=== PATIENT | male | born 1970 | race Caucasian/White ===

== ENCOUNTER 2024-01-23 01:47 | Emergency (ER) | payer MEDICAID, SELFPAY ==
[2024-01-23 01:53] VITALS: BP 175/104; PULSE 76; TEMP 36.8; O2SAT 95; BMI 26.5
--- NOTE | 2024-01-23 02:25 | ED_ITS ---
HPI - Abdominal Pain General Chief Complaint: Abdominal Pain Stated Complaint: LUMP/BUMP Time Seen by Provider: 01/23/24 02:02 Source: patient Mode of arrival: walk-in Limitations: no limitations History of Present Illness HPI narrative: This 53-year-old male presents for evaluation of left inguinal pain and swelling. He believes he has a hernia in this area. In September or October he was doing some heavy lifting and felt a tearing sensation in this area. Since that time he has felt a hernia in his left inguinal area just medial to the inguinal crease. He states that it swells up at times and he can feel gas gurgling and it. He states that sometimes after that when he passes gas the hernia goes down and his pain resolves. He has not been seen by a surgeon or his family physician for this. He states that for the past several days it has gotten worse and he feels that it is swollen and he cannot get it to go down despite passing gas. He denies any nausea or vomiting. He has no chest pain or shortness of breath. He has not been having any urinary symptoms. Related Data Home Medications ?Medication ?Instructions ?Recorded ?Confirmed No Known Home Medications 01/23/24 01/23/24 Allergies Allergy/AdvReac Type Severity Reaction Status Date / Time No Known Drug Allergies Allergy Verified 01/23/24 01:57 Review of Systems ROS Status of ROS 10 or more systems reviewed and unremark able except as noted in history and below Exam Narrative Exam Narrative: Vital signs and Nursing Notes reviewed: Patient is afebrile with a normal pulse, blood pressure is elevated at 175/104, he is not hypoxic with pulse ox of 95% on room air General: Awake, alert, oriented, no acute distress, lying comfortably on the stretcher HEENT: Normocephalic atraumatic, mucous membranes are moist and pink, eyes are clear, normal conjunctiva, vision is grossly intact Neck: Supple, no meningeal signs, no anterior or posterior cervical lymphadenopathy Chest: Lungs are clear to auscultation with good air entry, there is no wheezing rhonchi or rales appreciated no accessory muscle use, patient is speaking in complete sentences-no chest wall tenderness to palpation CVS: Regular rate and rhythm S1-S2, no murmurs rubs or gallops, pulses are brisk and equal bilaterally ABD: Soft, nondistended, mild tenderness in the left lower quadrant. Questionable hernia sac in the left medial inguinal area. There is no pulsatile mass or large hernia appreciated Extremities: Moving all extremities, no lower extremity tenderness or swelling noted, negative Homans' sign, pulses are brisk and equal bilaterally Skin: Normal in appearance without rash,pallor, petechiae or purpura Neuro: No focal deficits Constitutional Vital Signs, click to edit/add: Last Vital Signs Temp 98.2 F 01/23/24 01:53 Pulse 76 01/23/24 01:53 Resp 18 01/23/24 01:53 BP 157/88 H 01/23/24 02:49 Pulse Ox 95 01/23/24 01:53 O2 Del Method Room Air 01/23/24 01:53 Course Vital Signs Vital signs: Vital Signs Temperature 98.2 F 01/23/24 01:53 Pulse Rate 76 01/23/24 01:53 Respiratory Rate 18 01/23/24 01:53 Blood Pressure 175/104 H 01/23/24 01:53 Pulse Oximetry 95 01/23/24 01:53 Oxygen Delivery Method Room Air 01/23/24 01:53 Temperature 98.2 F 01/23/24 01:53 Pulse Rate 76 01/23/24 01:53 Respiratory Rate 18 01/23/24 01:53 Blood Pressure 157/88 H 01/23/24 02:49 Pulse Oximetry 95 01/23/24 01:53 Oxygen Delivery Method Room Air 01/23/24 01:53 MDM - Abdominal Pain MDM Narrative Medical decision making narrative: This 53-year-old male presents for evaluation of a left inguinal hernia that has been present since September or October after he was lifting something heavy and felt the hernia popped out and his left groin area. He is tender in the area medial to the inguinal canal. States that he can feel gas in this area and it will become swollen and after passing gas it goes down. He is not having any nausea or vomiting. I initially was questioning whether or not I could feel a hernia in this area but did feel a small defect. The patient was medicated with IV Dilaudid Zofran and IV fluids and placed in a supine position with his legs under 3 pillows to relax his abdominal muscles. He then got up to use the bathroom and I reevaluated him and could feel a small hernia in this area that I was able to easily reduce while he was standing. Routine labs were ordered and are reviewed. White count is minimally elevated 11.7. The remainder of his labs and lactic acid are normal. CT scan of the abdomen pelvis with oral and IV contrast was ordered and shows a small fat-containing left inguinal hernia without signs of incarceration or bowel obstruction. The results of the CT scan were discussed with the patient and his . I instructed him that if he has recurrence of this hernia he should lie down, relax his abdominal wall muscles and try to reduce it and if he cannot or has symptoms of nausea vomiting or in ability to pass gas or have bowel movements he should return to the emergency department as it may become obstructed. He will be referred to outpatient general surgery for further evaluation and treatment. Medical Records Medical records narrative: [facility] [place] [id number] CT Scan Report Signed Patient: KARLIE ANN MR#: [id number] : 1970 Acct:[id number] Age/Sex: 53 / M ADM Date: 01/23/24 Loc: ER Attending Dr: Ordering Physician: Ashley Tobin Date of Service: 01/23/24 Procedure(s): CT abdomen pelvis w con Accession Number(s): [id number] cc: Physician,Non-Staff M.Anyi~ The [address] [address] Patient Name: KARLIE ANN MRN: [id number] date: 1970 Sex: M Assigned Patient Location: ER Current Patient Location: ER Accession/Order Number: [id number] Exam Date: 01/23/2024 04:45 Report Date: 01/23/2024 05:18 At the request of: ASHLEY TOBIN Procedure: CT abdomen pelvis w con CT OF THE ABDOMEN AND PELVIS WITH CONTRAST: 01/23/2024 4:45 AM EDT CLINICAL HISTORY: Abdominal pain. COMPARISONS: None. TECHNIQUE: Thin section axial CT images were obtained from the lung bases to the pubis symphysis. This CT exam was performed using one or more of the following dose reduction techniques: Automated exposure control, adjustment of the mA and/or kV according to patient size, or use of iterative reconstruction technique. Thin section coronal and sagittal images were reconstructed from the axial data set. All images were reviewed and interpreted. CONTRAST: Intravenous and oral contrast was administered. Type and amount is documented at the local institution. FINDINGS: LUNG BASES: No consolidation or pleural fluid. LIVER: Normal. GALLBLADDER: Normal. BILIARY TREE: No ductal dilatation. PANCREAS: Normal. SPLEEN: Normal. ADRENALS: Normal. KIDNEYS: Normal, without urolithiasis or hydronephrosis. URINARY BLADDER: Grossly unremarkable. PELVIC STRUCTURES: Unremarkable. GASTROINTESTINAL TRACT: Normal GE junction and stomach. Normal appearance and caliber of small and large bowel. Oral contrast seen throughout most of small bowel but as yet to progress to large bowel. No evidence of obstruction, gross mass, or inflammatory change. There is mild scattered diverticulosis. There is no evidence of diverticulitis. APPENDIX: Negative. LYMPH NODES: No pathologically enlarged lymph nodes identified. PERITONEUM: No intraperitoneal free air. No free intraperitoneal fluid. MESENTERY: Unremarkable. RETROPERITONEUM: The retroperitoneum is unremarkable. AORTA: Normal in caliber. BODY WALL: No body wall mass. Small fat-containing left inguinal hernia without inflammation or obvious incarceration. No bowel herniation. No anterior abdominal wall hernia. OSSEOUS STRUCTURES: No destructive osseous lesion or displaced fracture. CT/CT abdomen pelvis w con IMPRESSION: 1. Small incidental fat-containing left inguinal hernia. 2. No acute or significant abdominal or pelvic pathology otherwise. Lab Data Attestation: I reviewed the patient's lab results. Lab results narrative: labs are normal Labs: Lab Results 01/23/24 Range/Units 02:30 WBC 11.7 H (4.0-11.0) 10^3/uL RBC 5.10 (4.70-6.10) 10^6/uL Hgb 14.6 (14.0-18.0) g/dL Hct 42.6 (42.0-54.0) % MCV 83.5 (80.0-94.0) fL MCH 28.6 (25.9-34.0) pg MCHC 34.3 (29.9-35.2) g/dL RDW 12.9 (11.0-15.0) % Plt Count 232 (150-450) 10^3/uL MPV 9.2 L (9.5-13.5) fL Neut % (Auto) 48.4 (43.0-75.0) % Lymph % (Auto) 35.0 (20.5-60.0) % [place] % (Auto) 8.0 (1.7-12.0) % Eos % (Auto) 7.2 H (0.9-7.0) % Baso % (Auto) 1.1 (0.2-2.0) % Neut # (Auto) 5.7 (1.4-6.5) 10^3/uL Lymph # (Auto) 4.1 H (1.2-3.8) 10^3/uL [place] # (Auto) 0.9 H (0.3-0.8) 10^3/uL Eos # (Auto) 0.8 H (0.0-0.7) 10^3/uL Baso # (Auto) 0.1 (0.0-0.1) 10^3/uL Abs Immat Gran (auto) 0.03 (0.00-0.03) 10^3/uL Imm/Tot Granulo (auto) 0.3 (0.0-0.5) % Sodium 140 (136-145) mmol/L Potassium 3.4 L (3.5-5.1) mmol/L Chloride 103 (98-107) mmol/L Carbon Dioxide 27.3 (21.0-32.0) mmol/L Anion Gap 13.1 BUN 17.0 (7.0-18.0) mg/dL Creatinine 0.99 (0.70-1.30) mg/dL Est GFR ( Amer) >60 (>=60) Est GFR (Non-Af Amer) >60 (>=60) BUN/Creatinine Ratio 17.2 Glucose 92 (74-106) mg/dL Lactate 0.9 (0.4-2.0) mmol/L Calcium 8.7 (8.5-10.1) mg/dL Total Bilirubin 0.4 (0.2-1.0) mg/dL AST 20 (15-37) U/L ALT 24 (16-63) U/L Alkaline Phosphatase 122 H (46-116) U/L Total Protein 7.3 (6.4-8.2) g/dL Albumin 3.6 (3.4-5.0) g/dL Globulin 3.7 g/dL Albumin/Globulin Ratio 1.0 Discharge Plan Discharge Stand Alone Forms: Portal Instructions Chief Complaint: Abdominal Pain Clinical Impression: Left inguinal hernia Patient Disposition: Home, Self-Care Time of Disposition Decision: 05:34 Condition: Good Prescriptions / Home Meds: No Action No Known Home Medications Print Language: Bulgarian Instructions: Inguinal Hernia (ED), Inguinal Hernia Repair (DC) Referrals: Derek Coronel DO [Physician] - 1 week Gasper Fitzpatrick MD [Physician] - 1 week Gasper Chong MD [Physician] - 1 week Physician,Non-StaffMD [Primary Care Provider] - 1 week
[2024-01-23 02:38] LABS: Basophils Absolute Auto 0.1 10^3/uL (0.0-0.1); Basophils Percent Auto 1.1 % (0.2-2.0); Eosinophils Absolute Auto 0.8 10^3/uL (0.0-0.7); Eosinophils Percent Auto 7.2 % (0.9-7.0); Hematocrit 42.6 % (42.0-54.0); Hemoglobin 14.6 g/dL (14.0-18.0); Immature Granulocytes Abs Auto 0.03 10^3/uL (0.00-0.03); Immature Granulocytes Pct Auto 0.3 % (0.0-0.5); Lymphocytes Absolute Auto 4.1 10^3/uL (1.2-3.8); Mean Corpuscular HGB Conc 34.3 g/dL (29.9-35.2); Mean Corpuscular Hemoglobin 28.6 pg (25.9-34.0); Mean Corpuscular Volume 83.5 fL (80.0-94.0); Mean Platelet Volume 9.2 fL (9.5-13.5); Monocytes Absolute Auto 0.9 10^3/uL (0.3-0.8); Neutrophils Absolute Auto 5.7 10^3/uL (1.4-6.5); Neutrophils Percent Auto 48.4 % (43.0-75.0); Platelet Count 232 10^3/uL (150-450); Red Cell Distribution Width 12.9 % (11.0-15.0); White Blood Count 11.7 10^3/uL (4.0-11.0)
[2024-01-23] MEDS: 0.9 % SODIUM CHLORIDE 1,000 ML 1000 ML IV (02:38)
[2024-01-23] MEDS: ONDANSETRON PF 4 MG/2 ML VIAL IV (02:38)
[2024-01-23] MEDS: HYDROMORPHONE HCL 1 MG/ML CARTRIDGE IV (02:39)
[2024-01-23 02:49] VITALS: BP 157/88
[2024-01-23 02:56] LABS: Alanine Aminotransferase 24 U/L (16-63); Albumin Level 3.6 g/dL (3.4-5.0); Alkaline Phosphatase 122 U/L (46-116); Anion Gap 13.1; Aspartate Amino Transferase 20 U/L (15-37); BUN Creatinine Ratio 17.2; Bilirubin Total 0.4 mg/dL (0.2-1.0); Calcium 8.7 mg/dL (8.5-10.1); Carbon Dioxide 27.3 mmol/L (21.0-32.0); Chloride 103 mmol/L (98-107); Estimated GFR (African America >60 (>=60); Estimated GFR (Non-African Ame >60 (>=60); Globulin 3.7 g/dL; Glucose 92 mg/dL (74-106); Potassium 3.4 mmol/L (3.5-5.1); Sodium 140 mmol/L (136-145); Total Protein 7.3 g/dL (6.4-8.2)
[2024-01-23 02:59] LABS: Lactate/Lactic Acid 0.9 mmol/L (0.4-2.0)
[2024-01-23 05:57] VITALS: BP 154/72; PULSE 88; O2SAT 97
== END 2024-01-23 05:57 | disposition home or self-care (01) ==
PROVIDERS: Emergency Provider Emergency Medicine
DX: K40.90 Unilateral inguinal hernia, without obstruction or gangrene, not specified as recurrent (principal)
CPT/HCPCS: 36415; 74177; 80053; 83605; 85025; 96374; 96375; 99284; J1170; Q9967

== ENCOUNTER 2024-02-12 08:35 | Outpatient (OUT) | payer MEDICAID, SELFPAY ==
--- NOTE | 2024-02-12 08:40 | ECG_ITS ---
[facility] Test Date: 2024-02-12 Pat Name: KARLIE ANN Department: Room: - Gender: Male [employer]: : 1970 Requested By: Order Number: [id number] Reading MD: MALIK PULIDO Measurements Intervals [place] Rate: 57 P: 43 MD: 153 QRS: -10 QRSD: 97 T: -23 QT: 527 QTc: 516 Interpretive Statements SINUS BRADYCARDIA POSSIBLE LEFT VENTRICULAR HYPERTROPHY [VOLTAGE CRITERIA PLUS LAE OR QRS WIDENING] MINIMAL ST DEPRESSION [0.025+ mV ST DEPRESSION] PROLONGED QT INTERVAL No previous ECG available for comparison Electronically Signed On 02-12-2024 22:49:06 EDT by MALIK PULIDO
--- OUTSIDE RECORDS SUMMARY | 2024-02-12 08:48 | XMS_ITS | CCD ---
Author Organization [facility] CliniSyny Care Team Providers Care Air Cargo Specialist Name Role Phone TRISTA, DR MIRANDA Primary Care Unavailable [facility], DR MIRANDA Attending Unavailable BOGUE, DR KARLIE Osorio Consulting Unavailable TRISTA, DR MIRANDA Admitting Unavailable TRISTA, DR MIRANDA Consulting Unavailable Lauren Hernández Primary Care Physician Unavailab Tara Cedillo Referring Unavailable CLARE, Tara Attending Unavailable Tara SPARKS Admitting Unavailable Alejandra Armando Attending Unavailable Lauren Hernández Referring Unavailable KADIE VOGEL Attending Unavailable Allergies Allergy Classification Reported Allergen(s) Allergy Type Date of Onset Reaction(s) Facility (2 sources) Tape 1 Drug allergy Eruption of skin (disorder) [facility] Comment on above: paper tape (1 source) Adhesive Tape; Translations: [Tape] Propensity to adverse reactions (disorder) [facility] Repository Medications Current Medications Medication Drug Class(es) Dates Sig (Normalized) Sig (Original) Ibuprofen (2 sources) Nonsteroidal Anti-inflammatory Drug Start: 04-12-2022 ibuprofen Oral, q8hr, PRN as needed for pain, Refills(s) 0 Start Date: 04/12/22 Status: Ordered Completed/Discontinued Medications Medication Drug Class(es) Dates Sig (Normalized) Sig (Original) polyethylene glycol 3350 [id number] mg / potassium chloride 1480 mg / sodium bicarbonate 5720 mg / sodium chloride 48448 mg powder for oral solution (2 sources) Osmotic Laxative Start: 04-12-2022 NuLYTELY Knutson oral powder for reconstitution See Instructions, 1 EA, Refill(s) 0, Prior to colonoscopy., [facility], 177.8, cm, 04/12/22 15:06:00 EDT, Height/Length Dosing, 88.3, kg, 04/12/22 15:06:00 EDT, Weight Dosing Start Date: 04/12/22 Status: Ordered Problems Problem Classification Problem Date Documented Da te Episodic/Chronic Other nervous system disorders (1 source) Other chronic pain; Translations: [OTHER CHRONIC PAIN] Onset: 03-11-2022 Chronic Other non-traumatic joint disorders (4 sources) Pain in right knee; Translations: [PAIN IN RIGHT KNEE] Onset: 03-10-2022 Episodic Other non-traumatic joint disorders (1 source) Pain in left knee; Translations: [PAIN IN LEFT KNEE] Onset: 03-11-2022 Episodic Unclassified (2 sources) Patient encounter status 04-12-2022 Results Test Name Value Interpretation Reference Range Facility Progress Note-Physicianon Progress Note-Physician Patient: KARLIE ANN SR. Age: 51 years Sex: Male : 1970 Associated Diagnoses: None Author: Crispin Siegel Jr., DO Preoperative Information Anesthesia history: Patient History: No prior problems.. Re-eval prior to induction: Inital eval reviewed: No significant interval change. Anesthesia results Review of Systems Constitutional: Negative except as documented in history of present illness. Cardiovascular: Negative except as documented in history of present illness. Respiratory: Negative. Health Status Allergies: Allergic Reactions (Selected) Severity Not Documented Tape- Rash., Allergies (1) Active Reaction Tape Rash Current medications: (Selected) Inpatient Medications Ordered Lactated Ringers IV Sophie 1000 mL 1,000 mL: 1,000 mL, IV, 100 mL/hr, Routine, Start date 05/25/22 13:09:00 EDT, 10 hour(s), Total volume (mL): 1,000 Sodium Chloride 0.9% IV Sophie 1000 mL 1,000 mL: 1,000 mL, IV, 20 mL/hr, Routine, Start date 05/25/22 8:06:00 EDT, 50 hour(s), Total volume (mL): 1,000 Prescriptions Prescribed NuLYTELY Knutson oral powder for reconstitution: See Instructions, 1 EA, Refill(s) 0, Prior to colonoscopy., [employer], 177.8, cm, 04/12/22 15:06:00 EDT, Height/Length Dosing, 88.3, kg, 04/12/22 15:06:00 EDT, Weight Dosing Documented Medications Documented ibuprofen: Oral, q8hr, PRN as needed for pain, Refills(s) 0 Histories Past Medical History: No active or resolved past medical history items have been selected or recorded. Family History: Primary malignant neoplasm of lung Father Primary malignant neoplasm of bone Brother Malignant lymphoma Mother Procedure history: Left foot ([id number]). Comments: 04/12/2022 15:02 EDT - Ilana Guo Surgery Social History Social & Psychosocial Habits Tobacco 04/12/2022 Tobacco Use: 10 or more cigarettes (1/ Smokeless tobacco use: Never Type: Cigarettes . Physical Examination Respiratory: Lungs are clear to auscultation. Cardiovascular: Regular rhythm. Plan [place] [employer]esthesiologists (ASA) physical status classification: Class II. Anesthetic Preoperative Plan Anesthesia: General. . Anesthetic plan, risks, benefits, and alternatives discussed with the patient and/or family. Patient verbalized understanding. Normal [facility] Comment on above: Result Comment: Elec tronically Signed By: Crispin Siegel Jr., DO.br\Date and Time Signed: 05/25/22 13:10 EDT Consent for Procedure/Surger yon 04-14-2022 Consent for Procedure/Surgery [id number]:[id number] Normal [facility] Ambulatory Visit Summaryon 0 04-12-2022 Ambulatory Visit Summary KARLIE ANN SR. :1970 Visit Date:04/12/2022 Ambulatory Visit Instructions Your Diagnosis Screen for colon cancer Your Care Team Attending Physician - Alejandra Armando CNP Primary Care Physician - Lauren Hernández CNP Referring Physician - Lauren Hernández CNP This Is Your Medications List polyethylene glycol 3350 with electrolytes (NuLYTELY Knutson oral powder for reconstitution) Contact prescribing physician if questions or concerns ibuprofen Procedures Performed Left foot. Discharge Vitals Temperature (Temporal Artery) 36.2 ?C Heart Rate (Peripheral) 82 Blood Pressure 133/79 Height 177.8 cm Height 177.8 cm Weight 88.3 kg Weight 88.3 kg BMI 27.93 What to do next You Need to Schedule the Following Appointments Follow Up with Alejandra Armando CNP When: Within 1 to 2 weeks Where: Medications What How Much When Instructions New polyethylene glycol 3350 with electrolytes (NuLYTELY Knutson oral powder for reconstitution) See instructions Prior to colonoscopy. Pickup at [facility] Unchanged ibuprofen OTC prn Contact prescribing physician if questions or concerns Pharmacy Information [facility]: [address] [place] [phone] Allergies Tape (Rash) Problems Ongoing - Any problem that you are currently receiving treatment for. Screen for colon cancer Education Materials Colonoscopy, Adult A colonoscopy is an exam to look at the entire large intestine. During the exam, a lubricated, flexible tube that has a camera on the end of it is inserted into the anus and then passed into the rectum, colon, and other parts of the large intestine. You may have a colonoscopy as a part of normal colorectal screening or if you have certain symptoms, such as: ? Lack of red blood cells (anemia). ? Diarrhea that does not go away. ? Abdominal pain. ? Blood in your stool (feces). A colonoscopy can help screen for and diagnose medical problems, including: ? Tumors. ? Polyps. ? Inflammation. ? Areas of bleeding. Tell a health care provider about: ? Any allergies you have. ? All medicines you are taking, including vitamins, herbs, eye drops, creams, and jwjj-zgk-iqldtwe medicines. ? Any problems you or family members have had with anesthetic medicines. ? Any blood disorders you have. ? Any surgeries you have had. ? Any medical conditions you have. ? Any problems you have had passing stool. What are the risks? Generally, this is a safe procedure. However, problems may occur, including: ? Bleeding. ? A tear in the intestine. ? A reaction to medicines given during the exam. ? Infection (rare). What happens before the procedure? Eating and drinking restrictions Follow instructions from your health care provider about eating and drinking, which may include: ? A few days before the procedure ? follow a low-fiber diet. Avoid nuts, seeds, dried fruit, raw fruits, and vegetables. ? 1?3 days before the procedure ? follow a clear liquid diet. Drink only clear liquids, such as clear broth or bouillon, black coffee or tea, clear juice, clear soft drinks or sports drinks, gelatin dessert, and popsicles. Avoid any liquids that contain red or purple dye. ? On the day of the procedure ? do not eat or drink anything starting 2 hours before the procedure, or within the time period that your health care provider recommends. Up to 2 hours before the procedure, you may continue to drink clear liquids, such as water or clear fruit juice. Bowel prep If you were prescribed an oral bowel prep to clean out your colon: ? Take it as told by your health care provider. Starting the day before your procedure, you will need to drink a large amount of medicated liquid. The liquid will cause you to have multiple loose stools until your stool is almost clear or light green. ? If your skin or anus gets irritated from diarrhea, you may use these to relieve the irritation: ? Medicated wipes, such as adult wet wipes with aloe and vitamin E. ? A skin-soothing product like petroleum jelly. ? If you vomit while drinking the bowel prep, take a break for up to 60 minutes and then begin the bowel prep again. If vomiting continues and you cannot take the bowel prep without vomiting, call your health care provider. ? To clean out your colon, you may also be given: ? Laxative medicines. ? Instructions about how to use an enema. General instructions ? Ask your health care provider about: ? Changing or stopping your regular medicines or supplements. This is especially important if you are taking iron supplements, diabetes medicines, or blood thinners. ? Taking medicines such as aspirin and ibuprofen. These medicines can thin your blood. Do not take these medicines before the procedure if your health care provider tells you not to. ? Lucita (more content not included)... Normal [facility] Gastroenterology Office/Clin ic Noteon 04-12-2022 Gastroenterology Office/Clinic Note Chief Complaint Schedule colonoscopy. HPI Staff New patient is here today to have colonoscopy scheduled. Patient was referred by Lauren Charlton CNP. History of Present Illness Patient is a 51-year-old male who presents for referral from his PCP?Lauren Hernández CNP for colonoscopy. Family history of colon cancer: Denies. Family history of colon polyps: Denies. Personal history of colon cancer: Denies. Personal history of colon polyps: Denies. Anticoagulation therapy: Denies. Antiplatelet therapy: Denies. During today's visit, patient reports he is doing well. Denies having any change in bowel habits, denies black/bloody stools. Denies having any GI complaints. Review of Systems PHQ Score Initial Depression Screen Score: 0 ROS - Provider Constitutional: no fever, no chills. Skin: no Jaundice. ENMT: Denies dysphagia and heartburn. Respiratory: no shortness of breath. Cardiovascular: no chest pain. Gastrointestinal: no nausea, no vomiting, no diarrhea, no GI bleeding. Physical Exam Vitals & Measurements T: 36.2 ?C(Temporal Artery) HR: 82(Peripheral) BP: 133/79 HT: 177.8 cm HT: 177.8 cm WT: 88.3 kg WT: 88.3 kg BMI: 27.93 General: Well developed, well nourished, in no acute distress Head: Normocephalic/atraumat ic Lungs: Normal respiratory effort and clear to auscultation Cardio: Regular rate and rhythm, normal S1 and S2, no murmur, no rub Abdomen: Soft, non-distended, non-tender. Normoactive bowel sounds present in all 4 abdominal quadrants, bilaterally. Mental Status: Alert and oriented x3. Normal mood and affect Assessment/Plan 1. Screen for colon cancer (Z12.11: Encounter for screening for malignant neoplasm of colon) Has never had colonoscopy before. Ordered Colonoscopy. Denies anticoagulation therapy. Ordered: Colonoscopy (Hospital Procedure) Orders: polyethylene glycol 3350 with electrolytes, See Instructions, 1 EA, Refill(s) 0, Prior to colonoscopy., [facility], 177.8, cm, 04/12/22 15:06:00 EDT, Height/Length Dosing, 88.3, kg, 04/12/22 15:06:00 EDT, Weight Dosing Follow-up With When Contact Information Alejandra Armando CNP Within 1 to 2 weeks Additional Instructions: Patient Education Colonoscopy, Adult Problem List/Past Medical History Ongoing Screen for colon cancer Historical No qualifying data Procedure/Surgical History Left foot. Medications ibuprofen NuLYTELY Knutson oral powder for reconstitution, See Instructions Allergies Tape (Rash) Social History Tobacco 10 or more cigarettes (1/2 pack or more)/day in last 30 days Tobacco Use:. Never Smokeless Tobacco Use:. Cigarettes, 04/12/2022 Family History Malignant lymphoma: Mother. Primary malignant neoplasm of bone: Brother. Primary malignant neoplasm of lung: Father. Normal [facility] Comment on above: Result Comment: Elec tronically Signed By: Alejandra Armando CNP\.rafael\Date and Time Signed: 04/12/22 15:14 EDT Patient Educationon 04-12-20 Patient Education Radiology Colonoscopy, Adult A colonoscopy is an exam to look at the entire large intestine. During the exam, a lubricated, flexible tube that has a camera on the end of it is inserted into the anus and then passed into the rectum, colon, and other parts of the large intestine. You may have a colonoscopy as a part of normal colorectal screening or if you have certain symptoms, such as: ? Lack of red blood cells (anemia). ? Diarrhea that does not go away. ? Abdominal pain. ? Blood in your stool (feces). A colonoscopy can help screen for and diagnose medical problems, including: ? Tumors. ? Polyps. ? Inflammation. ? Areas of bleeding. Tell a health care provider about: ? Any allergies you have. ? All medicines you are taking, including vitamins, herbs, eye drops, creams, and gana-jfe-hnejofp medicines. ? Any problems you or family members have had with anesthetic medicines. ? Any blood disorders you have. ? Any surgeries you have had. ? Any medical conditions you have. ? Any problems you have had passing stool. What are the risks? Generally, this is a safe procedure. However, problems may occur, including: ? Bleeding. ? A tear in the intestine. ? A reaction to medicines given during the exam. ? Infection (rare). What happens before the procedure? Eating and drinking restrictions Follow instructions from your health care provider about eating and drinking, which may include: ? A few days before the procedure ? follow a low-fiber diet. Avoid nuts, seeds, dried fruit, raw fruits, and vegetables. ? 1?3 days before the procedure ? follow a clear liquid diet. Drink only clear liquids, such as clear broth or bouillon, black coffee or tea, clear juice, clear soft drinks or sports drinks, gelatin dessert, and popsicles. Avoid any liquids that contain red or purple dye. ? On the day of the procedure ? do not eat or drink anything starting 2 hours before the procedure, or within the time period that your health care provider recommends. Up to 2 hours before the procedure, you may continue to drink clear liquids, such as water or clear fruit juice. Bowel prep If you were prescribed an oral bowel prep to clean out your colon: ? Take it as told by your health care provider. Starting the day before your procedure, you will need to drink a large amount of medicated liquid. The liquid will cause you to have multiple loose stools until your stool is almost clear or light green. ? If your skin or anus gets irritated from diarrhea, you may use these to relieve the irritation: ? Medicated wipes, such as adult wet wipes with aloe and vitamin E. ? A skin-soothing product like petroleum jelly. ? If you vomit while drinking the bowel prep, take a break for up to 60 minutes and then begin the bowel prep again. If vomiting continues and you cannot take the bowel prep without vomiting, call your health care provider. ? To clean out your colon, you may also be given: ? Laxative medicines. ? Instructions about how to use an enema. General instructions ? Ask your health care provider about: ? Changing or stopping your regular medicines or supplements. This is especially important if you are taking iron supplements, diabetes medicines, or blood thinners. ? Taking medicines such as aspirin and ibuprofen. These medicines can thin your blood. Do not take these medicines before the procedure if your health care provider tells you not to. ? Plan to have someone take you home from the hospital or clinic. What happens during the procedure? ? An IV may be inserted into one of your veins. ? You will be given medicine to help you relax (sedative). ? To reduce your risk of infection: ? Your health care team will wash or sanitize their hands. ? Your anal area will be washed with soap. ? You will be asked to lie on your side with your knees bent. ? Your health care provider will lubricate a long, thin, flexible tube. The tube will have a camera and a light on the end. ? The tube will be inserted into your anus. ? The tube will be gently eased through your rectum and colon. ? Air will be delivered into your colon to keep it open. You may feel some pressure or cramping. ? The camera will be used to take images during the procedure. ? A small tissue sample may be removed to be examined under a microscope (biopsy). ? If small polyps are found, your health care provider may remove them and have them checked for cancer cells. ? When the exam is done, the tube will be removed. The procedure may vary among health care providers and hospitals. What happens after the procedure? ? Your blood pressure, heart rate, breathing rate, and blood oxygen level will be monitored until the medicines you were given have worn off. ? Do not drive for 24 hours after the exam. ? You may have a small amount of blood in your stool. ? You may pass gas and have mild abdominal cramping or bloating due to the air t (more content not included)... Normal [facility] Physician Referralon 022 Physician Referral [id number]:[id number] Normal [facility] XR KNEE LESLY 3 Von 03-10-2022 XR KNEE LESLY 3 V EXAMINATION: XR KNEE LESLY 3 V HISTORY: Pain of right knee joint COMPARISON: No relevant comparison available. FINDINGS: RIGHT FINDINGS: BONES: Normal. No significant arthropathy or acute abnormality. SOFT TISSUES: Negative. No visible soft tissue swelling. OTHER: Negative. LEFT FINDINGS: BONES: Corticated bone fragment projected over the medial tibial spine, incidental fabella versus remote injury SOFT TISSUES: Negative. No visible soft tissue swelling. OTHER: Negative. IMPRESSION: RIGHT CONCLUSION: No acute abnormality LEFT CONCLUSION: No acute abnormality Electronically authenticated by: KARLIE PEREIRA Date: 2022-03-10 18:21 Normal [facility] Encounters Encounter Date Encounter Type Care Provider Facility Start: 01-31-2024 End: 01-31-2024 ambulatory KADIE VOGEL Not Available Start: 05-18-2022 End: 08-17-2022 ambulatory Pachecoadalid RUTLEDGE [place] Start: 04-12-2022 End: 04-13-2022 ambulatory Alejandra Armando Facility:[facility] Start: 04-12-2022 End: 08-16-2022 Recurring Pachecoadalid RUTLEDGE [facility] Start: 04-12-2022 End: 05-26-2022 Pre-admission assessment Pacheco [facility] Start: 07-18-2022 ambulatory [facility] Facility:[facility] Start: 03-10-2022 End: 03-11-[address] MIRANDA [facility] Facility:[facility]1 Procedures Date Procedure Procedure Detail Performing Clinician Structure of left fo ot (body structure) Tara SPARKS Comment on above: Surgery Payers Date Payer Category Payer Medicaid [id number] 2022 Unknown [id number] 1970 Unknown [id number] 1970 Unknown [id number] 1970 Unknown [id number] 1970 Unknown [id number] Social History Date Type Detail Facility Start: 04-12-2022 Tobacco smoking status Heavy t obacco smoker (finding) [facility] Tobacco smoking status Never [facility] Sex Assigned At Male [facility] Evaluation + Plan note Note Date & Type Note Facility Evaluation + Plan note No data available for this section [facility] Hospital Discharge instructions Note Date & Type Note Facility Hospital Discharge instructions No data available for this section [facility] Progress note Note Date & Type Note Facility Progress note No data available for this section [facility] Summary Purpose Family History No Family History Records FoundNo Family History Records FoundNo Family History Records Found Advance Directives No Advanced Directives Records FoundNo Advanced Directives Records FoundNo Advanced Directives Records Found Additional Source Comments (unrecognized sect ion and content) No Status Records FoundNo Status Records FoundNo Status Records Found INFORMATION SOURCE (unrecogn ized section and content) DATE CREATED AUTHOR 04/20/2022 [facility] DATE CREATED AUTHOR AUTHOR'S ORGANIZ ATION 08/20/2022 [facility] DATE CREATED AUTHOR AUTHOR'S ORGANIZ ATION 02/01/2024 [facility] EPIC Care Team (unrecognized sect ion and content) Personnel Name: Lauren Hernández CNP Address: [address] [place], [place] [id number] [place] [address] Personnel Name: Lauren Hernández CNP Address: Address: [address] [place] [address] FOR RECORDS PERTAINING TO PATIENTS WHO ARE OR HAVE BEEN ENROLLED IN A CHEMICAL DEPENDENCY/SUBSTANCEABUSE PROGRAM, SOME INFORMATION MAY BE OMITTED. This clinical summary was aggregated from multiple sources. Caution should be exercised in using it in the provision of clinical care. This summary normalizes information from multiple sources, and as a consequence, information in this document may materially change the coding, format and clinical context of patient data. In addition, data may be omitted in some cases. CLINICAL DECISIONS SHOULD BE BASED ON THE PRIMARY CLINICAL RECORDS. [facility]. provides no warranty or guarantee of the accuracy or completeness of information in this document.
== END 2024-02-12 08:36 | disposition home or self-care (01) ==
LOC: PST 08:36
PROVIDERS: Visit Provider Surgery
DX: Z01.810 Encounter for preprocedural cardiovascular examination (principal); K40.90 Unilateral inguinal hernia, without obstruction or gangrene, not specified as recurrent
CPT/HCPCS: 93005

== ENCOUNTER 2024-04-08 05:21 | Emergency (ER) | payer MEDICAID, SELFPAY ==
[2024-04-08 05:23] VITALS: BP 168/106; PULSE 88; TEMP 36.4; O2SAT 100; BMI 28.1
--- OUTSIDE RECORDS SUMMARY | 2024-04-08 05:25 | XMS_ITS | CCD ---
Author Organization [facility] Care Team Providers Care Safety Fire Boss Name Role Phone TRISTA, DR MIRANDA Primary Care Unavailable [facility], DR MIRANDA Attending Unavailable [place], DR KARLIE Osorio Consulting Unavailable TRISTA, DR MIRANDA Admitting Unavailable TRISTA, DR MIRANDA Consulting Unavailable Lauren Coto Primary Care Physician Unavail KADIE Lundberg Attending Unavailable LAUREN COTO Primary Care Physician [phone] Allergies Allergy Classification Reported Allergen(s) Allergy Type Date of Onset Reaction(s) Facility (3 sources) Tape 1 Drug allergy Eruption of skin (disorder) [facility] Comment on above: paper tape Medications Current Medications Medication Drug Class(es) Dates Sig (Normalized) Sig (Original) Ibuprofen (3 sources) Nonsteroidal Anti-inflammatory Drug Start: 04-12-2022 ibuprofen Oral, q8hr, PRN as needed for pain, Refills(s) 0 Start Date: 04/12/22 Status: Ordered Completed/Discontinued Medications Medication Drug Class(es) Dates Sig (Normalized) Sig (Original) polyethylene glycol 3350 464796 mg / potassium chloride 1480 mg / sodium bicarbonate 5720 mg / sodium chloride 78405 mg powder for oral solution (3 sources) Osmotic Laxative Start: 04-12-2022 NuLYTELY Knutson oral powder for reconstitution See Instructions, 1 EA, Refill(s) 0, Prior to colonoscopy., [employer] [address]72, 177.8, cm, 04/12/22 15:06:00 EDT, [...] IN LEFT KNEE] Onset: 03-11-2022 Episodic Unclassified (3 sources) Patient encounter status 04-12-2022 Results Test Name Value Interpretation Reference Range Facil ity Referrals Officeon Referrals Office [id number] .00TIFF Normal [facility] Referrals Office [id number] .00TIFF Normal [facility] XR KNEE LESLY 3 Von 03-10-2022 XR [...] by: KARLIE PEREIRA Date: 2022-03-10 18:21 Normal [facility] Encounters Encounter Date Encounter Type Care Provider Facility Start: 02-12-2024 End: 02-13-2024 Pre-admission assessment [facility] Start: 01-31-2024 End: 01-31-2024 ambulatory KADIE VOGEL Not Available Start: 04-12-2022 End: 08-16-2022 Recurring Tara SPARKS [facility] Start: 04-12-2022 End: 05-26-2022 Pre-admission assessment Tara SPARKS [facility] Start: 03-10-2022 End: 03-11-[address] MIRANDA [facility] Facility:H1 Procedures Date Procedure Procedure Detail Performing Clinician Structure of left fo ot (body structure) Tara SPARKS Comment on above: Surgery Payers Date Payer Category Payer Medicaid [id number] 1970 Unknown [id number] 1970 Unknown [id number] Unknown [id number] Social History Date Type Detail Facility Start: 04-12-2022 Tobacco smoking status Heavy t obacco smoker (finding) [facility] Tobacco smoking status Never [facility] Sex Assigned At Male [facility] Evaluation + Plan note Note Date & Type Note Facility Evaluation + Plan note No data available for this section [facility] Hospital Discharge instructions Note Date & Type Note Facility Hospital Discharge instructions No data available for this section [facility] Progress note Note Date & Type Note Facility Progress note No data available for this section [facility] Summary Purpose Family History No Family History Records FoundNo Family History Records FoundNo Family History Records Found No data available for this section Advance Directives No Advanced Directives Records FoundNo Advanced Directives Records FoundNo Advanced Directives Records Found Additional Source Comments (unrecognized sect ion and content) No Status Records FoundNo Status Records FoundNo Status Records Found INFORMATION SOURCE (unrecogn ized section and content) DATE CREATED AUTHOR 04/20/2022 [facility] DATE CREATED AUTHOR AUTHOR'S ORGANIZ ATION 02/01/2024 [facility] EPIC DATE CREATED AUTHOR AUTHOR'S ORGANIZ ATION 02/13/2024 [facility] Care Team (unrecognized sect ion and content) Personnel Name: Lauren Coto CNP Address: [address] [place] [address] Personnel Name: Lauren Coto CNP Address: Address: [address] [place] [address] Personnel Name: LAUREN COTO CNP Address: Address: [address] [place] [address] FOR RECORDS PERTAINING TO PATIENTS WHO ARE [...] BE BASED ON THE PRIMARY CLINICAL RECORDS. [facility] provides no warranty or guarantee of the accuracy or completeness of information in this document.
--- NOTE | 2024-04-08 05:42 | ED_ITS ---
HPI - Male Genitourinary General Chief complaint: Urogenital-Male Stated complaint: hernia l groin Time Seen by Provider: 04/08/24 05:36 Source: patient Mode of arrival: walk-in History of Present Illness HPI Narrative: patient presents with left inguinal hernia that is incarcerated. Normally he is able to reduce it but has been unsuccessful this time. No vomiting or fever. also has a rash on his extremities(worse right lower ext) which he believes is poison [place] He didn't come in for the rash Related Data Home Medications ?Medication ?Instructions ?Recorded ?Confirmed No Known Home Medications 01/23/24 01/23/24 Allergies Allergy/AdvReac Type Severity Reaction Status Date / Time No Known Drug Allergies Allergy Verified 01/23/24 01:57 Review of Systems ROS Status of ROS 10 or more systems reviewed and unremark able except as noted in history and below [facility] Medical History (Updated 04/08/24 @ 06:41 by Derek Barrios MD) Hypertension ?I10 - Essential (primary) hypertension (ICD-10) Osteomyelitis ?M86.9 - Osteomyelitis, unspecified (ICD-10) Foot fracture, left ?S92.902A - Unspecified fracture of left foot, initial encounter for closed fracture (ICD-10) Inguinal hernia ?K40.90 - Unilateral inguinal hernia, without obstruction or gangrene, not specified as recurrent (ICD-10) Surgical History (Updated 02/12/24 @ 09:36 by Yasmine Moe, RAUL) History of surgery on lower extremity ?Z98.890 - Other specified postprocedural states (ICD-10) H/O foot surgery ?Z98.890 - Other specified postprocedural states (ICD-10) Family History (Updated 02/12/24 @ 08:55 by Yasmine Moe, RN) Other Family history of COPD (chronic obstructive pulmonary disease) Family history of cancer Family history of diabetes mellitus Family history of stroke Heart disease Social History (Updated 02/12/24 @ 08:54 by Yasmine Moe, RN) Within the past year, how often did you have a drink containing alcohol: 2-4 times a month Smoking status: Current every day smoker Nicotine containing products detail: pack per day Non-prescribed substance use details: used to use cannabis years agol 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 Highest level of school completed/degree received: 11th grade Exam Constitutional Vital Signs, click to edit/add: Last Vital Signs Temp 97.6 F 04/08/24 05:23 Pulse 88 04/08/24 05:23 Resp 16 04/08/24 05:23 BP 168/106 H 04/08/24 05:23 Pulse Ox 100 04/08/24 05:23 O2 Del Method Room Air 04/08/24 05:23 Common normals: no apparent distress, average body habitus, oriented x3, no limitations, healthy appearing, alert and well nourished HENAZ Common normals: normocephalic and head/scalp atraumatic Eye Common normals: PERRL, EOMs intact bilaterally and conjunctivae normal Respiratory Common normals: normal respiratory effort, no retractions, no use of accessory muscles and clear to auscultation bilaterally Cardio Common normals: regular rate, regular rhythm, S1 normal heart sound and S2 normal heart sound GI Common normals: Normal to inspection, nondistended, normoactive bowel sounds present, soft to palpation and non-tender Other: left inguinal hernia. tender. firm Extremity Other: rash RLE LLE and left elbow. dense rash RLE with weeping. Swelling RLE Neuro Common normals: oriented x3, CN's II-XII intact bilaterally, moves all extremities, no focal motor deficits and no sensory deficits noted Psych Appearance: grossly normal Course Vital Signs Vital signs: Vital Signs Temperature 97.6 F 04/08/24 05:23 Pulse Rate 88 04/08/24 05:23 Respiratory Rate 16 04/08/24 05:23 Blood Pressure 168/106 H 04/08/24 05:23 Pulse Oximetry 100 04/08/24 05:23 Oxygen Delivery Method Room Air 04/08/24 05:23 Temperature 97.6 F 04/08/24 05:23 Pulse Rate 88 04/08/24 05:23 Respiratory Rate 16 04/08/24 05:23 Blood Pressure 168/106 H 04/08/24 05:23 Pulse Oximetry 100 04/08/24 05:23 Oxygen Delivery Method Room Air 04/08/24 05:23 MDM - Male Genitourinary MDM Narrative Medical decision making narrative: patient presents with incarcerated left inguinal hernia that he is not able to reduce. Able to reduce in the past. also has contact dermatitis of his extremities. Worse RLE but RLE also swollen. no fever. Patient medicated with Dilaudid to help with reduction of his hernia. given dose of solumedrol IV for his rash and venous Doppler ordered care transferred to Dr Grant at change of shift Discharge Plan Discharge Chief Complaint: Urogenital-Male Clinical Impression: Left inguinal hernia, Contact dermatitis, Swelling of right lower extremity Patient Disposition: Still a Patient Prescriptions / Home Meds: No Action No Known Home Medications Print Language: Hungarian Referrals: Physician,Non-Staff, MD [Primary Care Provider] - 1 week
[2024-04-08] MEDS: HYDROMORPHONE HCL 0.5 MG/0.5 ML SYRINGE IV (05:54)
--- NOTE | 2024-04-08 06:17 | US_ITS ---
[facility] [place] [id number] Patient Name: KARLIE ANN MRN: [id number] date: 1970 Sex: M Assigned Patient Location: ED.MAIN Current Patient Location: ER Accession/Order Number: [id number] Exam Date: 04/08/2024 07:02 Report Date: 04/08/2024 07:40 At the request of: JAS HAHN Procedure: US venous doppler LE RT CLINICAL DATA: Leg swelling PROCEDURE: Right lower extremity venous duplex ultrasound. TECHNIQUE: Mercado-scale, color flow, and waveform spectral analysis was performed of the right lower extremity. FINDINGS: The right common femoral, profunda femoral, femoral, and popliteal veins were compressible. The saphenous vein was compressible. No venous thrombosis was seen. The veins fill with color Doppler. Augmentation was normal. US/US venous doppler LE RT IMPRESSION: 1. No acute lower extremity deep venous thrombosis. 2. No superficial venous thrombosis. Electronically authenticated by: Nery LENZ Date: 04/08/2024 07:40
[2024-04-08] MEDS: HYDROMORPHONE HCL 1 MG/ML CARTRIDGE IV (06:34)
[2024-04-08] MEDS: METHYLPREDNISOLONE SOD SUCC PF 125 MG/2 ML VIAL IVP (06:34)
--- NOTE | 2024-04-08 07:50 | ED_ITS ---
HPI HPI - General Adult General Chief complaint: Urogenital-Male Stated complaint: hernia l groin Time Seen by Provider: 04/08/24 05:36 Source: patient Mode of arrival: walk-in History of Present Illness HPI narrative: 53-year-old male presents to the emergency department and was initially seen by Dr. Barrios and signed out to me after discussing the case with him thoroughly. Please see his full history and physical exam. Related Data Previous Rx's ?Medication ?Instructions ?Recorded prednisone 10 mg tablet See Rx Instructions .Route 04/08/24 .COMPLEX #30 tabs Allergies Allergy/AdvReac Type Severity Reaction Status Date / Time No Known Drug Allergies Allergy Verified 01/23/24 01:57 Opioid HPI Opioid Management Most Recent Opioid Data: Last Pain Scale 7 04/08/24 06:34 Last MAR [facility]24 [facility] History (Updated 04/08/24 @ 06:41 by Derek Barrios MD) Hypertension ?I10 - Essential (primary) hypertension (ICD-10) Osteomyelitis ?M86.9 - Osteomyelitis, unspecified (ICD-10) Foot fracture, left ?S92.902A - Unspecified fracture of left foot, initial encounter for closed fracture (ICD-10) Inguinal hernia ?K40.90 - Unilateral inguinal hernia, without obstruction or gangrene, not specified as recurrent (ICD-10) Surgical History (Updated 02/12/24 @ 09:36 by Yasmine Moe, RN) History of surgery on lower extremity ?Z98.890 - Other specified postprocedural states (ICD-10) H/O foot surgery ?Z98.890 - Other specified postprocedural states (ICD-10) Family History (Updated 02/12/24 @ 08:55 by Yasmine Moe, RN) Other Family history of COPD (chronic obstructive pulmonary disease) Family history of cancer Family history of diabetes mellitus Family history of stroke Heart disease Social History (Updated 02/12/24 @ 08:54 by Yasmine Moe, RN) Within the past year, how often did you have a drink containing alcohol: 2-4 times a month Smoking status: Current every day smoker Nicotine containing products detail: pack per day Non-prescribed substance use details: used to use cannabis years agol 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 Highest level of school completed/degree received: 11th grade Exam Constitutional Vital Signs, click to edit/add: Last Vital Signs Temp 97.6 F 04/08/24 05:23 Pulse 88 04/08/24 05:23 Resp 16 04/08/24 05:23 BP 168/106 H 04/08/24 05:23 Pulse Ox 100 04/08/24 05:23 O2 Del Method Room Air 04/08/24 05:23 Course Vital Signs Vital signs: Vital Signs Temperature 97.6 F 04/08/24 05:23 Pulse Rate 88 04/08/24 05:23 Respiratory Rate 16 04/08/24 05:23 Blood Pressure 168/106 H 04/08/24 05:23 Pulse Oximetry 100 04/08/24 05:23 Oxygen Delivery Method Room Air 04/08/24 05:23 Temperature 97.6 F 04/08/24 05:23 Pulse Rate 88 04/08/24 05:23 Respiratory Rate 16 04/08/24 05:23 Blood Pressure 168/106 H 04/08/24 05:23 Pulse Oximetry 100 04/08/24 05:23 Oxygen Delivery Method Room Air 04/08/24 05:23 Medical Decision Making MDM Narrative Medical decision making narrative: Doppler is negative. My clinical impression is that he has a contact dermatitis and he is prescribed prednisone. The inguinal hernia was reduced by Dr. Barrios and the patient will follow-up with his surgeon, Dr. Coronel. Treatment diagnosis and follow-up were discussed with the patient. Differential Diagnosis Differential Diagnosis: Contact dermatitis, poison [place], inguinal hernia Imaging Data Venous Doppler: Radiologist's impression: ITS Impressions Venous Doppler Study 04/08/24 06:17 IMPRESSION: 1. No acute lower extremity deep venous thrombosis. 2. No superficial venous thrombosis. Electronically authenticated by: Nery LENZ Date: 04/08/2024 07:40 Discharge Plan Discharge Stand Alone Forms: Portal Instructions Chief Complaint: Urogenital-Male Clinical Impression: Left inguinal hernia, Contact dermatitis, Swelling of right lower extremity Patient Disposition: Home, Self-Care Time of Disposition Decision: 07:49 Condition: Good Mode of Transportation: Private Vehicle Prescriptions / Home Meds: New prednisone 10 mg tablet See Rx Instructions .ROUTE .COMPLEX Qty: 30 0RF Rx Instructions: 4 by mouth daily for three days then 3 by mouth daily for three days then 2 by mouth daily for three days then 1 by mouth daily for three days Print Language: Vietnamese Instructions: Contact Dermatitis (ED), Inguinal Hernia (ED) Additional Instructions: Follow-up with Dr. Coronel regarding your hernia. Referrals: Physician,Non-Staff, MD [Primary Care Provider] - 1 week
[2024-04-08 07:55] VITALS: PULSE 68; O2SAT 97
== END 2024-04-08 08:02 | disposition home or self-care (01) ==
PROVIDERS: Emergency Provider Emergency Medicine
DX: M79.89 Other specified soft tissue disorders (principal); K40.30 Unilateral inguinal hernia, with obstruction, without gangrene, not specified as recurrent; L25.9 Unspecified contact dermatitis, unspecified cause; F17.200 Nicotine dependence, unspecified, uncomplicated
CPT/HCPCS: 93971; 96374; 96375; 96376; 99284; J1170; J2919

== ENCOUNTER 2024-05-07 08:20 | Outpatient (OUT) | payer MEDICAID, SELFPAY ==
--- NOTE | 2024-05-07 08:21 | CA_ITS ---
Patient Name: KARLIE ANN MR#: [id number] : 1970 Exam Date: 05/07/2024 Ordering Doctor: DR. BENITO VALENCIA M.D. ECHOCARDIOGRAM REPORT PROCEDURE: CA ECHO DOPPLER COMPLETE INDICATIONS: Abnormal EKG, Benign HTN w/o heart failure COMPARISON: None. DESCRIPTION: COMPLETE ECHOCARDIOGRAM Real-time transthoracic echocardiography with 2D, M-mode, spectral and color flow Doppler performed. QUALITY: Technical quality was good. LEFT VENTRICLE: Mild dilatation. Mild concentric left ventricular hypertrophy. LV EF: Global left ventricular systolic function is moderately reduced; visually estimated ejection fraction is 35 to 40%. Diffuse hypokinesis DIASTOLIC: Grade 2 diastolic dysfunction. ATRIAL SEPTUM: Inadequately seen. LEFT ATRIUM: Mild dilatation. RIGHT ATRIUM: Mild dilatation. RIGHT VENTRICLE: Normal chamber size. Normal right ventricular systolic function. TRICUSPID VALVE: Normal mobility and thickness. No stenosis with trivial regurgitation. No evidence of pulmonary hypertension. RVSP 19mmHg MITRAL VALVE: Normal mobility and thickness. No evidence of mitral valve stenosis. There is no mitral annular calcification. Trivial mitral regurgitation. AORTIC VALVE: Bicuspid appearance. Nodular calcification is seen. No evidence of aortic valve stenosis. Mild aortic regurgitation. AORTIC ROOT: Mildly dilated. PULMONIC VALVE: Normal thickness and mobility. No stenosis. Trivial regurgitation. PERICARDIUM: No evidence of pericardial effusion. IVC: Collapses with inspirations. Normal size. CONCLUSION: 1. Global left ventricular systolic function is moderately reduced; visually estimated ejection fraction of this 35 to 40% 2. Normal right ventricular size and systolic function 3. Grade 2 diastolic dysfunction 4. Biatrial enlargement 5. The aortic valve appears bicuspid; mild aortic valve regurgitation Adult Echocardiography Procedure Report Left Ventricle LVEDD (3.7 - 5.6 cm): 6.07 cm LVESD (2.2 - 4.0 cm): 5.03 cm LVIVS thickness (0.6 - 1.2 cm): 1.07 cm LVPW thickness (0.5 - 1.0 cm): 1.10 cm e': 0.09 m/s E - e': 8.66 LVOT Max Gradient: 2.82 mm[Hg] LVOT Area (cm2): 0.84 m/s Peak Velocity (LVOT): 0.84 m/s Mean Velocity (LVOT): 0.55 m/s LVOT Diameter 2.78 cm Left Atrium LA Volume Index (2D A2C): 37.78 ml/m2 Left Atrium Systolic Dimension: 3.71 cm Mitral Valve MV E to A Ratio: 0.92 Mitral Valve A-Wave Peak Velocity: 0.83 m/s Mitral Valve E-Wave Peak Velocity: 0.76 m/s Right Ventricle RV Internal Diastolic Dimension: 3.18 cm Aorta AO Root Diam: 3.92 cm Ascending Ao Diam: 2.82 cm Aortic Valve AoV Area (Peak Geovany): 2.67 cm2, 2.67 cm2 AoV Area (VTI): 2.80 cm2, 2.80 cm2 Deceleration [place]: 1.19 m/s2 Pressure Half-Time: 951.85 ms Peak Velocity(Antegrade Flow): 1.90 m/s Peak Gradient(Antegrade Flow): 14.51 mm[Hg] Mean Velocity(Antegrade Flow): 1.31 m/s Mean Gradient(Antegrade Flow): 7.96 mm[Hg] Velocity Time Integral: 43.05 cm Tricuspid Valve Peak Velocity (Regurgitant Flow): 1.92 m/s, 2.00 m/s, 1.78 m/s Pulmonic Valve Mean Gradient: 1.63 mm[Hg], 1.95 mm[Hg] Mean Velocity: 0.58 m/s, 0.64 m/s Peak Velocity: 0.97 m/s Peak Gradient: 3.51 mm[Hg], 3.96 mm[Hg] Right Atrium Right Atrium Systolic Pressure: 55.73 ml, 55.73 ml Dictated by: Julianna Do M.D. on 05/07/2024 at 13:19 Approved by: Julianna Do M.D. on 05/07/2024 at 13:28
== END 2024-05-07 08:21 | disposition home or self-care (01) ==
LOC: CARD 08:21
PROVIDERS: Visit Provider Internal Medicine Cardiovascular Disease
DX: Z01.810 Encounter for preprocedural cardiovascular examination (principal); I11.9 Hypertensive heart disease without heart failure
CPT/HCPCS: 93306; 93356

== ENCOUNTER 2024-05-21 13:44 | Outpatient (OUT) | payer MEDICAID, SELFPAY ==
--- OUTSIDE RECORDS SUMMARY | 2024-05-21 13:58 | XMS_ITS | CCD ---
Author Organization [facility] Inform ion Partnership [facility] Care Team Providers Care Coffee Grinder Name Role Phone TRISTA, DR MIRANDA Primary Care Unavailable TRISTA, DR MIRANDA Attending Unavailable WEST, DR KARLIE Osorio Consulting Unavailable TRISTA, DR MIRANDA Admitting Unavailable TRISTA, DR MIRANDA Consulting Unavailable Monique Coto Primary Care Physician Unavailab KADIE Lundberg Attending Unavailable MONIQUE COTO Primary Care Physician BENITO LYMAN Attending Unavailable Allergies Allergy Classification Reported Allergen(s) Allergy Type Date of Onset Reaction(s) Facility (3 sources) Tape 1 Drug allergy Eruption of skin (disorder) [facility] Comment on above: paper tape Medications Current Medications Medication Drug Class(es) Dates Sig (Normalized) Sig (Original) Ibuprofen (3 sources) Nonsteroidal Anti-inflammatory Drug Start: 04-12-2022 ibuprofen Oral, q8hr, PRN as needed for pain, Refills(s) 0 Start Date: 04/12/22 Status: Ordered Completed/Discontinued Medications Medication Drug Class(es) Dates Sig (Normalized) Sig (Original) polyethylene glycol 3350 309520 mg / potassium chloride 1480 mg / sodium bicarbonate 5720 mg / sodium chloride 19556 mg powder for oral solution (3 sources) Osmotic Laxative Start: 04-12-2022 NuLYTELY Knutson oral powder for reconstitution See Instructions, 1 EA, Refill(s) 0, Prior to colonoscopy., [employer] #72, 177.8, cm, 04/12/22 15:06:00 EDT, Height/Length Dosing, 88.3, kg, 04/12/22 15:06:00 EDT, Weight Dosing Start Date: 04/12/22 Status: Ordered Problems Problem Classification Problem Date Documented Date Episodic/Chronic Hypertension with complications and secondary hypertension (2 sources) Hypertensive heart disease without heart failure; Translations: [Hypertensive heart disease without heart failure] Onset: 04-15-2024 Chronic Other nervous system disorders (1 source) Other chronic pain; Translations: [OTHER CHRONIC PAIN] Onset: 03-11-2022 Chronic Other non-traumatic joint disorders (4 sources) Pain in right knee; Translations: [PAIN IN RIGHT KNEE] Onset: 03-10-2022 Episodic Other non-traumatic joint disorders (1 source) Pain in left knee; Translations: [PAIN IN LEFT KNEE] Onset: 03-11-2022 Episodic Other screening for suspected conditions (not mental disorders or infectious disease) (2 sources) Abnormal electrocardiogram [ECG] [EKG]; Translations: [Abnormal electrocardiogram (ECG) (EKG)] Onset: 04-15-2024 Episodic Unclassified (3 sources) Patient encounter status 04-12-2022 Results Test Name Value Interpretation Reference Range Facil ity 36on 05-13-[address] Lyman regarding patient's echo from 05/08/2024. EF is reduced. She ordered seamus cath and carvedilol 6.25mg bid. I spoke with patient and made him aware. Annette call surgeon's office and made them aware patient would not be cleared for hernia surgery tomorrow. Patient agreed to heart cath. Orders entered. [facility] 36 You ordered echo on this patient for pre-op. He had it last week and the result is scanned into intermediate project manager. Can you please review and let me know once you've cleared him? Thanks. [facility] Office Visiton 04-15-2024 Follow-up visit [id number] Karlie Ann 1970 M Date Provider Department Center 04/15/2024 [id number] LYMAN [facility] Family History Problem Relation Age of Onset Other Mother No Known Problems Father Family Status - Relation Status Age at Mother Father Level of Service:92422 [place] OFFICE/OUTPATIENT NEW MODERATE MDM 45 MINUTES Reason for Visit and Comments: New Patient [632] - New patient , here for hernia surgery clearance. Scheduled 04/23. No cardio symptoms. Pt has hypertenion. [facility] Referrals Officeon 4 Referrals Office [id number] #1.00TIFF Normal [facility] Referrals Office [id number] #1.00TIFF Normal [facility] XR KNEE LESLY 3 Von 03-10-2022 [...] by: KARLIE PEREIRA Date: 2022-03-10 18:21 Normal [facility] Encounters Encounter Date Encounter Type Care Provider Facility Start: 04-15-2024 End: 04-15-2024 ambulatory [facility] Start: 02-12-2024 End: 02-13-2024 Pre-admission assessment [facility] Park [facility] Start: 01-31-2024 End: 01-31-2024 ambulatory KADIE VOGEL Not Available Start: 04-12-2022 End: 08-16-2022 Recurring Tara SPARKS [facility] Start: 04-12-2022 End: 05-26-2022 Pre-admission assessment Tara SPARKS [facility] Start: 03-10-2022 End: 03-11-[address] DOCTOR WESTON Facility:H1 Procedures Date Procedure Procedure Detail Performing Clinician Structure of left fo ot (body structure) Tara SPARKS Comment on above: Surgery Payers Date Payer Category Payer Medicaid [id number] 1970 Unknown [id number] [id number] 1970 Unknown [id number] [id number] Unknown [id number] Social History Date Type Detail Facility Start: 04-12-2022 Tobacco smoking status Heavy t obacco smoker (finding) [facility] Tobacco smoking status Never Bonie [facility] Sex Assigned At Male [facility] Progress note 04-15-2024 Note Date & Type Note Facility 04-15-2024 Note [facility] Note Reason for cardiology consult: Cardiac clearance for inguinal hernia repair Chief Complaint: No cardiac complaint HPI: Karlie Ann is a 53 y.o. male without prior cardiac history. He has history of hypertension. He denies history of hyperlipidemia or diabetes mellitus. He is a smoker Patient states that he has hypertension and blood pressure usually in the range of 145 systolic, he used to be on medications however he quit about 8 to 9 months ago due to side effects. He does not recall the name of his medication. Clinically has been doing well. Denies any chest pain or shortness of breath at rest or with exertion. Denies orthopnea or paroxysmal nocturnal dyspnea. He denies dizziness, syncope or near syncope. He denies legs edema or legs discomfort on exertion. He is a longtime smoker, he used to smoke 2-2 and half pack per day since he was 14-year-old however he cut down gradually to 1 pack/day. He drinks alcohol only on the weekend about 12 packs of beers. He denies any illicit drugs. Regarding family history his mother had history of coronary artery disease at age 71 or 72. Cardiology ROS: GENERAL: Denies fever, chills, night sweats, weight loss. HEENT: Denies changes in vision, photophobia, changes in hearing, epistaxis, oral bleeding. CARDIOVASCULAR: Denies chest pain, exertional dyspnea, orthopnea/PND, lower extremity edema, palpitations, lightheadedness/dizziness. RESPIRATORY: Denies SOB, coughing, wheezing GI: Denies abdominal pain, nausea/vomiting, heartburn, melena/hematochezia. RENAL: Denies dysuria, hematuria, flank pain. MSK: Denies muscle weakness/pain, arthralgias/joint pain. NEUROLOGIC: Denies LOC, weakness, numbness, headaches. SKIN: Denies abnormal rashes or bleeding. PSYCH: Denies significant anxiety, depression, sleep disturbances. Past Medical History He has a past medical history of Abnormal ECG and Hypertension. Surgical History He has a past surgical history that includes Leg Surgery and Foot surgery. Social History He reports that he has been smoking cigarettes. He has been smoking an average of 1 pack per day. He has never used smokeless tobacco. He reports current alcohol use. No history on file for drug use. Family History Family History Problem Relation Name Age of Onset Other (heart issues) Mother No Known Problems Father Allergies Patient has no known allergies. Medications No current outpatient medications on file. Last Recorded Vitals Visit Vitals BP 138/73 (BP Location: Right leg, Patient Position: Sitting) Pulse 71 Ht 1.753 m (5' 9 ) Wt 90.7 kg (200 lb) SpO2 93% BMI 29.53 kg/m??? Smoking Status Every Day BSA 2.1 m??? Physical Examination: GENERAL: alert and oriented x3, well developed, in no acute distress. HEAD: atraumatic, normocephalic. EYES: ARCENIO, EOMI. NECK: trachea midline, no JVD present, no carotid bruits present. CARDIAC: S1, S2 present. RRR. Systolic ejection murmur 3 over 6 at the aortic area with radiation to the neck, no rubs, or gallops. RESPIRATORY: CTAB, no increased effort of breathing, no rales, rhonchi, or wheezing. ABDOMEN: soft, nontender, nondistended. EXTREMITIES: no lower extremity edema, peripheral pulses are 2+ bilaterally. No rash/skin discoloration present. NEURO: strength/sensation equal and symmetric in bilateral upper and lower extremities. PSYCH: appropriate mood, affect, and judgement. Labs: 01/23/2024 White blood count 11.7, hemoglobin 14.6, Sodium 140, potassium 3.4, BUN 17, creatinine 0.99, GFR above 60, glucose 92, calcium 8.7 AST 20, ALT 24, total bilirubin 0.4, alk phos 122, total protein 7.3 Lipids: No results found for: CHOL No results found for: HDL No results found for: LDLCALC No results found for: TRIG No components found for: CHOLHDL TSH: No results found for: TSH HBA1c: No results found for: HGBA1C BNP: No results found for: BNP Last Images: EKG 02/12/2024 showed normal sinus rhythm, LVH with ST-T abnormality Assessment and Plan: Cardiac clearance for inguinal hernia repair Abnormal EKG Cardiac murmur suggestive of aortic sclerosis/stenosis Hypertension Overweight, BMI 29.5 kg/m??? Tobacco abuse Alcohol use Inguinal hernia Plan: I will obtain an echocardiographic study before clearing him for surgery. If it is normal I will clear him. In regarding to hypertension I asked the patient to check his blood pressure twice daily for the next week or so and drop the BP log at the office to determine if he needs treatment Patient was highly advised regarding the importance of smoking and ETOH cessation in to improve his long-term prognosis. After reviewing his echo I will determine if he needs follow-up with cardiology and when Benito Lyman MD,[facility] Evaluation + Plan note Note Date & Type Note Facility Evaluation + Plan note No data available for this section [facility] Hospital Discharge instructions Note Date & Type Note Facility Hospital Discharge instructions No data available for this section [facility] Progress note Note Date & Type Note Facility Progress note No data available for this section [facility] Summary Purpose Family History No Family History Records FoundNo Family History Records FoundNo Family History Records Found No data available for this section No Family History Records Found Advance Directives No Advanced Directives Records FoundNo Advanced Directives Records FoundNo Advanced Directives Records FoundNo Advanced Directives Records Found Additional Source Comments (unrecognized sect ion and content) No Status Records FoundNo Status Records FoundNo Status Records FoundNo Status Records Found INFORMATION SOURCE (unrecogn ized section and content) DATE CREATED AUTHOR 04/20/2022 [facility] DATE CREATED AUTHOR AUTHOR'S ORGANIZ ATION 02/01/2024 [facility] EPIC DATE CREATED AUTHOR AUTHOR'S ORGANIZ ATION 02/13/2024 [facility] DATE CREATED AUTHOR AUTHOR'S ORGANIZ ATION 05/14/2024 [facility] Care Team (unrecognized sect ion and content) Personnel Name: Monique Coto CNP Address: [address] [place] [id number] Personnel Name: Monique Coto CNP Address: Address: [address] [place] [address] Personnel Name: MONIQUE COTO CNP Address: Address: [address] [place] [id number] FOR RECORDS PERTAINING TO PATIENTS WHO ARE [...] BE BASED ON THE PRIMARY CLINICAL RECORDS. [facility] [employer] provides no warranty or guarantee of the accuracy or completeness of information in this document.
[2024-05-21 14:10] LABS: Basophils Absolute Auto 0.1 10^3/uL (0.0-0.1); Basophils Percent Auto 1.2 % (0.2-2.0); Eosinophils Absolute Auto 0.6 10^3/uL (0.0-0.7); Hematocrit 43.6 % (42.0-54.0); Hemoglobin 15.1 g/dL (14.0-18.0); Immature Granulocytes Abs Auto 0.02 10^3/uL (0.00-0.03); Immature Granulocytes Pct Auto 0.2 % (0.0-0.5); Lymphocytes Absolute Auto 3.4 10^3/uL (1.2-3.8); Lymphocytes Percent Auto 33.8 % (20.5-60.0); Mean Corpuscular HGB Conc 34.6 g/dL (29.9-35.2); Mean Corpuscular Volume 83.8 fL (80.0-94.0); Mean Platelet Volume 9.7 fL (9.5-13.5); Monocytes Absolute Auto 0.6 10^3/uL (0.3-0.8); Neutrophils Absolute Auto 5.3 10^3/uL (1.4-6.5); Neutrophils Percent Auto 52.8 % (43.0-75.0); Platelet Count 269 10^3/uL (150-450); Red Cell Distribution Width 12.5 % (11.0-15.0); White Blood Count 10.1 10^3/uL (4.0-11.0)
[2024-05-21 14:52] LABS: Anion Gap 11.4; BUN Creatinine Ratio 14.6; Calcium 9.3 mg/dL (8.5-10.1); Carbon Dioxide 27.9 mmol/L (21.0-32.0); Chloride 101 mmol/L (98-107); Estimated GFR (African America >60 (>=60); Estimated GFR (Non-African Ame >60 (>=60); Glucose 115 mg/dL (74-106); Potassium 3.3 mmol/L (3.5-5.1); Sodium 137 mmol/L (136-145)
== END 2024-05-21 13:45 | disposition home or self-care (01) ==
PROVIDERS: Visit Provider Internal Medicine Cardiovascular Disease
DX: R93.1 Abnormal findings on diagnostic imaging of heart and coronary circulation (principal)
CPT/HCPCS: 36415; 80048; 85025

== ENCOUNTER 2024-05-30 13:16 | Outpatient (OUT) | payer MEDICAID, SELFPAY ==
--- OUTSIDE RECORDS SUMMARY | 2024-05-30 13:32 | XMS_ITS | CCD ---
Author Organization [facility] Care Team Providers Care Drywall Hanger Name Role Phone TRISTA, DR MIRANDA Primary Care Unavailable IVETTE, DR MIRANDA Attending Unavailable WEST, DR KARLIE Osorio Consulting Unavailable TRISTA, DR MIRANDA Admitting Unavailable TRISTA, DR MIRANDA Consulting Unavailable Lauren Coto Primary Care Physician Unavailab KADIE Lundberg Attending Unavailable LAUREN COTO Primary Care Physician [phone] BENITO LYMAN Admitting Unavailable BENITO LYMAN Attending Unavailable BENITO LYMAN Attending Unavailable BENITO LYMAN Referring Unavailable Allergies Allergy Classification Reported Allergen(s) Allergy Type Date of Onset Reaction(s) Facility (3 sources) Tape 1 Drug allergy Eruption of skin (disorder) [facility] Comment on above: paper tape Medications Current Medications Medication Drug Class(es) Dates Sig (Normalized) Sig (Original) Ibuprofen (3 sources) Nonsteroidal Anti-inflammatory Drug Start: 04-12-2022 ibuprofen Oral, q8hr, PRN as needed for pain, Refills(s) 0 Start Date: 04/12/22 Status: Ordered Completed/Discontinued Medications Medication Drug Class(es) Dates Sig (Normalized) Sig (Original) polyethylene glycol 3350 354665 mg / potassium chloride 1480 mg / sodium bicarbonate 5720 mg / sodium chloride 36296 mg powder for oral solution (3 sources) Osmotic Laxative Start: 04-12-2022 NuLYTELY Knutson oral powder for reconstitution See Instructions, 1 EA, Refill(s) 0, Prior to colonoscopy., [employer] #72, 177.8, cm, 04/12/22 15:06:00 EDT, [...] conditions (not mental disorders or infectious disease) (4 sources) Abnormal findings on diagnostic imaging of heart and coronary circulation; Translations: [Abnormal electrocardiogram [ECG] [EKG]] Onset: 04-15-2024 Episodic Unclassified (3 sources) Patient encounter status 04-12-2022 Results Test Name Value Interpretation Reference Range Facil riley Alma 05-23-2024 ANES -- Attestation signed by Benito Lyman MD at 05/23/2024 11:06 AM I personally saw and examined the patient on the same date of service as resident/fellow Dr Quijano. I discussed the findings and therapeutic plan with the resident/fellow Dr Sahu. I agree with the documentation, except for any edits/updates below. Teaching Physician's Revisions: None Benito Lyman MD, [facility] Patient: Karlie Ann Procedure Information Date/Time: 05/23/24 1000 Procedure: Coronary angiography (Left) - PC [facility] Providers: Benito Lyman MD Clinical information reviewed: Allergies Meds Physical Exam Airway Mallampati: II TM distance: >3 FB Neck ROM: full Cardiovascular Rhythm: regular Rate: normal (-) murmur, peripheral edema Dental Pulmonary Breath sounds clear to auscultation Abdominal - normal exam Anesthesia Plan ASA 2 other (Conscious sedation. ) Additional Equipment Requests Normal [facility] HPon 05-23-2024 History Of Present Illness Karlie Ann is a 53 y.o. male presenting for coronary angiogram for newly diagnosed HFrEF. He has history of hypertension. Denies any chest pain or shortness of [...] artery disease at age 71 or 72. Past Medical History He has a past [...] No history on file for drug use. Allergies Patient has no known allergies. Medications Medications Prior to Admission Medication Sig Dispense Refill Last Dose carvedilol (Coreg) 6.25 mg tablet Take 1 tablet (6.25 mg) by mouth with breakfast and with evening meal. 180 tablet 3 05/23/2024 losartan-hydroCHLOROth iazide (Hyzaar) 50-12.5 mg tablet Take 1 tablet by mouth in the morning. 05/23/2024 Review of Systems GENERAL: Denies fever, chills, night sweats, weight loss. HEENT: Denies changes in vision, photophobia, changes in hearing, epistaxis, oral bleeding. CARDIOVASCULAR: Denies chest pain, exertional dyspnea, orthopnea/PND, lower extremity edema, palpitations, lightheadedness/dizzin ess. RESPIRATORY: Denies SOB, coughing, wheezing GI: Denies abdominal pain, nausea/vomiting, heartburn, melena/hematochezia. RENAL: Denies dysuria, hematuria, flank pain. MSK: Denies muscle weakness/pain, arthralgias/joint pain. NEUROLOGIC: Denies LOC, weakness, numbness, headaches. SKIN: Denies abnormal rashes or bleeding. PSYCH: Denies significant anxiety, depression, sleep disturbances. Physical Exam GENERAL: alert and oriented x3, well developed, [...] extremities. PSYCH: appropriate mood, affect, and judgement. Last Recorded Vitals Blood pressure 151/84, pulse 70, resp. rate 16, SpO2 96 %. Relevant Results 01/23/2024 White blood count 11.7, hemoglobin 14.6, Sodium 140, potassium 3.4, BUN 17, creatinine 0.99, GFR above 60, glucose 92, calcium 8.7 AST 20, ALT 24, total bilirubin 0.4, alk phos 122, total protein 7.3 Assessment/Plan Active Problems: Decreased cardiac ejection fraction Abnormal echocardiogram 1/ Newly diagnosed HFrEF, NYHA 2. Compensated. 2/ Essential HTN. Will obtain cardiac catheterization to rule out any significant ischemia. GDMT titration on outpatient basis. Ingrid Wallis MD Thermostat Repairer - PGY6 [facility] NURSNOTEon 05-23-2024 NURSNOTE RN educated pt on d/ c instructions. RN provided pt with arm sling and educated pt on importance of not using arm for 24 hours for radial sites and limited physical activity for femoral sites. RN encouraged pt to voice any questions or concerns. Pt verbalizes no questions or concerns at this time. Pt was wheeled off of unit with all of belongings. [facility] 36on 05-13-20[address] Lyman regarding patient's echo from 05/08/2024. EF is reduced. She ordered seamus cath and carvedilol 6.25mg bid. I spoke with patient and made him aware. Annette call surgeon's office and made them aware patient would not be cleared for hernia surgery tomorrow. Patient agreed to heart cath. Orders entered. [facility] 36 You ordered echo on this patient for pre-op. He had it last week and the result is scanned into sr. social media & mobile manager. Can you please review and let me know once you've cleared him? Thanks. [facility] Orders Onlyon 05-13-2024 Orders Only [id number] Karlie Ann 1970 M Date Provider Department Center 05/13/2024 [id number] WARNER Family History Problem Relation Age of Onset Other Mother No Known Problems Father Family Status - Relation Status Age at Mother Father [facility] Office Visiton 04-15-2024 Follow-up visit [id number] Karlie Ann 1970 M Date Provider Department Center 04/15/2024 [id number] RODRIGUEZ Family History Problem Relation Age of Onset Other Mother No Known Problems Father Family Status - Relation Status Age at Mother Father Level of Service:32073 [place] OFFICE/OUTPATIENT NEW MODERATE MDM 45 MINUTES Reason for Visit and Comments: New Patient [632] - New patient , here for hernia surgery clearance. Scheduled 04/23. No cardio symptoms. Pt has hypertenion. [facility] Referrals Officeon 4 Referrals Office [id number] 11 [id number]#1.0 0TIFF [facility] Referrals Office [id number] 11 [id number]#1.0 0TIFF [facility] XR KNEE LESLY 3 Von 03-10-2022 XR [...] by: KARLIE PEREIRA Date: 2022-03-10 18:21 Normal [facility] Encounters Encounter Date Encounter Type Care Provider Facility Start: 05-23-2024 End: 05-23-2024 ambulatory [facility] Start: 04-15-2024 End: 04-15-2024 ambulatory [facility] Start: 02-12-2024 End: 02-13-2024 Pre-admission assessment [facility] Start: 01-31-2024 End: 01-31-2024 ambulatory KADIE VOGEL Not Available Start: 04-12-2022 End: 08-16-2022 Recurring Tara SPARKS [facility] Start: 04-12-2022 End: 05-26-2022 Pre-admission assessment Tara SPARKS [facility] Start: 03-10-2022 End: 03-11-[address] DOCTOR WESTON Facility:H1 Procedures Date Procedure Procedure Detail Performing Clinician Structure of left fo ot (body structure) Tara SPARKS Comment on above: Surgery Payers Date Payer Category Payer Medicaid [id number] 1970 Unknown [id number] [id number] 1970 Unknown [id number] Unknown [id number] Social History Date Type Detail Facility Start: 04-12-2022 Tobacco smoking status Heavy t obacco smoker (finding) [facility] Tobacco smoking status Never Yudy [facility] Sex Assigned At Male [facility] Progress note 05-23-2024 Note Date & Type Note Facility 05-23-2024 Note Cardiac cath showed minor CAD 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 He can proceed with inguinal hernia surgical repair from cardiac point of view. He is considered to be at low risk for perioperative cardiac events. Please make sure that he receives his medications the morning of the surgery and to avoid volume over load with his low ejection fraction 35 to 40% Benito Lyman MD, [facility] Progress note 04-15-2024 Note Date & Type Note Facility 04-15-2024 Note [place] [facility] Note Reason for cardiology [...] follow-up with cardiology and when Benito Lyman MD,[facility] Evaluation + Plan note Note Date & Type Note Facility Evaluation + Plan note No data available for this section [facility] Hospital Discharge instructions Note Date & Type Note Facility Hospital Discharge instructions No data available for this section [facility] Progress note Note Date & Type Note Facility Progress note No data available for this section [facility] Summary Purpose Family History No [...] and content) DATE CREATED AUTHOR 04/20/2022 [facility] DATE CREATED AUTHOR AUTHOR'S ORGANIZ ATION 02/01/2024 [facility] DATE CREATED AUTHOR AUTHOR'S ORGANIZ ATION 02/13/2024 [facility] DATE CREATED AUTHOR AUTHOR'S ORGANIZ ATION 05/28/2024 [facility] Care Team (unrecognized sect ion and content) Personnel Name: Lauren Coto CNP Address: [address] [place] [address] Personnel Name: Lauren Coto CNP Address: Address: [address] [place] [address] Personnel Name: CHICA LAUREN KNOWLES Address: Address: [address] [place] [address] FOR RECORDS PERTAINING TO PATIENTS WHO ARE [...] BE BASED ON THE PRIMARY CLINICAL RECORDS. [facility] provides no warranty or guarantee of the accuracy or completeness of information in this document.
--- NOTE | 2024-05-30 14:08 | P.GSHP_ITS ---
History of Present Illness History of Present Illness Chief complaint: Left Inguinal Hernia Narrative: Patient presents for preadmission testing. The patient states he has a left inguinal hernia that has been present for about 6 months. He states he is able to reduce the hernia on his own, but he did have 1 ER visit for a successful reduction. He was scheduled for surgery for hernia repair here in January, but he had an abnormal EKG and was subsequently sent to cardiology for evaluation. He has been cleared by cardiology at this point and states he is doing well on his blood pressure medication. Review of Systems ROS Narrative REVIEW OF SYSTEMS: Negative except as stated in HPI, ten or more systems reviewed. Constitutional: No fever, chills, weakness ENT: No sore throat or epistaxis Cardiovascular: No edema, chest pain, palpitations, or activity intolerance Respiratory: No shortness of breath, cough, or wheezing Musculoskeletal: No joint pain or swelling Genitourinary: No dysuria or hematuria Neurological: No numbness, tingling, weakness, or headache Psychiatric: No mood changes PFSH PFSH Medical History (Updated 05/30/24 @ 13:35 by Michelle Alvarado NP) Nonischemic cardiomyopathy ?I42.8 - Other cardiomyopathies (ICD-10) Aortic stenosis ?I35.0 - Nonrheumatic aortic (valve) stenosis (ICD-10) H/O cardiac murmur ?Z86.79 - Personal history of other diseases of the circulatory system (ICD- 10) Abnormal EKG (~01/2024) ?R94.31 - Abnormal electrocardiogram [ECG] [EKG] (ICD-10) Hypertension ?I10 - Essential (primary) hypertension (ICD-10) Osteomyelitis ?M86.9 - Osteomyelitis, unspecified (ICD-10) Foot fracture, left ?S92.902A - Unspecified fracture of left foot, initial encounter for closed fracture (ICD-10) Inguinal hernia ?K40.90 - Unilateral inguinal hernia, without obstruction or gangrene, not specified as recurrent (ICD-10) Surgical History (Updated 02/12/24 @ 09:36 by Yasmine Moe RN) History of surgery on lower extremity ?Z98.890 - Other specified postprocedural states (ICD-10) H/O foot surgery ?Z98.890 - Other specified postprocedural states (ICD-10) Family History (Updated 02/12/24 @ 08:55 by Yasmine Moe RN) Other Family history of COPD (chronic obstructive pulmonary disease) Family history of cancer Family history of diabetes mellitus Family history of stroke Heart disease Social History (Updated 05/30/24 @ 13:42 by Michelle Alvarado NP) Within the past year, how often did you have a drink containing alcohol: 2-3 times a week Smoking status: Current every day smoker Nicotine containing products detail: pack per day Non-prescribed substance use: denies use Non-prescribed substance use details: used to use cannabis years agol 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 Highest level of school completed/degree received: 11th grade Meds Home Medications and Allergies Home Medications ?Medication ?Instructions ?Recorded ?Confirmed ?Type carvedilol 6.25 mg tablet 6.25 mg PO Q12H 05/30/24 05/30/24 History dapagliflozin propanediol 10 mg 10 mg PO DAILY HTN 05/30/24 05/30/24 History tablet (Farxiga) losartan 50 mg-hydrochlorothiazide 1 tab PO DAILY 05/30/24 05/30/24 History 12.5 mg tablet Allergies Allergy/AdvReac Type Severity Reaction Status Date / Time No Known Drug Allergies Allergy Verified 05/30/24 13:37 Exam Narrative Exam Narrative: Constitutional: Awake, alert, comfortable, well-appearing, nontoxic, interactive, vital signs as charted Head: Normocephalic, atraumatic Neck: Supple, normal appearance, normal range of motion, no meningeal signs, no lymphadenopathy Respiratory: No respiratory distress, breath sounds clear Cardiovascular: Regular rate and rhythm, systolic murmur noted Abdomen: Nontender, normal bowel sounds, soft, reducible left inguinal hernia, no CVA tenderness Musculoskeletal: Normal gait, no swelling or edema Skin: No rashes or induration, no lesions, only visible skin inspected Neuro: No neurological deficits, normal sensation Psychiatric: Oriented ?3, normal affect Assessment and Plan Assessment and Plan (1) Inguinal hernia: Plan Robot assisted left inguinal hernia repair with mesh scheduled with Dr. Coronel June 11, 2024.
== END 2024-05-30 13:17 | disposition home or self-care (01) ==
LOC: PST 13:16
PROVIDERS: Visit Provider Surgery
DX: Z01.818 Encounter for other preprocedural examination (principal); K40.90 Unilateral inguinal hernia, without obstruction or gangrene, not specified as recurrent
CPT/HCPCS: G0463

== ENCOUNTER 2024-06-11 07:11 | Day surgery (SDC) | payer MEDICAID, SELFPAY ==
[2024-05-30 14:06] VITALS: BP 128/78; PULSE 77; TEMP 36.2; O2SAT 98; BMI 28.1
[2024-06-11] VITALS (16 sets, daily range): BP systolic 124–166; BP diastolic 68–108; PULSE 68–79; TEMP 36.2; O2SAT 87–98; BMI 28.4
--- OUTSIDE RECORDS SUMMARY | 2024-06-11 07:13 | XMS_ITS | CCD ---
Author Organization [facility] Care Team Providers Care Manager Biostatistics Name Role Phone TRISTA, DR MIRANDA Primary Care Unavailable IVETTE, DR MIRANDA Attending Unavailable WEST, DR KARLIE Osorio Consulting Unavailable TRISTA, DR MIRANDA Admitting Unavailable TRISTA, DR MIRANDA Consulting Unavailable Lauren Coto Primary Care Physician Unavailab KADIE Lundberg Attending Unavailable LAUREN COTO Primary Care Physician [phone] BENITO LYMAN Admitting Unavailable BENITO LYMAN Attending Unavailable BENITO LYMAN Attending Unavailable BENITO LYMAN Referring Unavailable Allergies Allergy Classification Reported Allergen(s) Allergy Type Date of Onset Reaction(s) Facility (3 sources) Tape 1 Drug allergy Eruption of skin (disorder) [facility] Comment on above: paper tape Medications Current Medications Medication Drug Class(es) Dates Sig (Normalized) Sig (Original) Ibuprofen (3 sources) Nonsteroidal Anti-inflammatory Drug Start: 04-12-2022 ibuprofen Oral, q8hr, PRN as needed for pain, Refills(s) 0 Start Date: 04/12/22 Status: Ordered Completed/Discontinued Medications Medication Drug Class(es) Dates Sig (Normalized) Sig (Original) polyethylene glycol 3350 353102 mg / potassium chloride 1480 mg / sodium bicarbonate 5720 mg / sodium chloride 23428 mg powder for oral solution (3 sources) Osmotic Laxative Start: 04-12-2022 NuLYTELY Knutson oral powder for reconstitution See Instructions, 1 EA, Refill(s) 0, Prior to colonoscopy., [employer] #72, 177.8, cm, 04/12/22 15:06:00 EDT, [...] Teaching Physician's Revisions: None Benito Lyman MD, [facility] Patient: Karlie Ann Procedure Information Date/Time: 05/23/24 1000 Procedure: Coronary angiography (Left) - PC APPROVED Location: [facility] 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 ) Additional Equipment Requests Normal [facility] HPon 05-23-2024 History Of Present Illness Karlie [...] titration on outpatient basis. Ingrid Wallis MD Lithographic Plate Maker - PGY6 [facility] NURSNOTEon 05-23-2024 NURSNOTE RN educated pt on [...] off of unit with all of belongings. [facility] 36on 05-13-20[address] Lyman regarding patient's echo from 05/08/2024. EF is reduced. She ordered seamus cath and carvedilol 6.25mg bid. I spoke with patient and made him aware. Annette call surgeon's office and made them aware patient would not be cleared for hernia surgery tomorrow. Patient agreed to heart cath. Orders entered. [facility] 36 You ordered echo on this patient for pre-op. He had it last week and the result is scanned into multimedia educational specialist. Can you please review and let me know once you've cleared him? Thanks. [facility] Orders Onlyon 05-13-2024 Orders Only [id number] Karlie Ann 1970 M Date Provider Department Center 05/13/2024 [id number] WARNER Family History Problem Relation Age of Onset Other Mother No Known Problems Father Family Status - Relation Status Age at Mother Father [facility] Office Visiton 04-15-2024 Follow-up visit [id number] Karlie Ann 1970 M Date Provider Department Center 04/15/2024 [id number] Family History Problem Relation Age of Onset Other Mother No Known Problems Father Family Status - Relation Status Age at Mother Father Level of Service:[address]005 [place] OFFICE/OUTPATIENT NEW MODERATE MDM 45 MINUTES Reason for Visit and Comments: New Patient [632] - New patient , here for hernia surgery clearance. Scheduled 04/23. No cardio symptoms. Pt has hypertenion. [facility] Referrals Officeon 4 Referrals Office [id number] 11 [id number]#1.0 0TIFF [facility] Referrals Office [id number] 11 [id number] 0TIFF [facility] XR KNEE LESLY 3 Von [...] by: KARLIE PEREIRA Date: 2022-03-10 18:21 Normal [facility] Encounters Encounter Date Encounter Type Care Provider Facility Start: 05-23-2024 End: 05-23-2024 ambulatory [facility] Start: 04-15-2024 End: 04-15-2024 ambulatory [facility] Start: 02-12-2024 End: 02-13-2024 Pre-admission assessment [facility] Start: 01-31-2024 End: 01-31-2024 ambulatory KADIE VOGEL Not Available Start: 04-12-2022 End: 08-16-2022 Recurring Tara SPARKS [facility] Start: 04-12-2022 End: 05-26-2022 Pre-admission assessment Tara SPARKS [facility] Start: 03-10-2022 End: 03-11-[address] DOCTOR WESTON Facility:H1 Procedures Date Procedure Procedure Detail Performing Clinician Structure of left fo ot (body structure) Tara SPARKS Comment on above: Surgery Payers Date Payer Category Payer Medicaid [id number] 1970 Unknown [id number] 1970 Unknown [id number] Unknown [id number] Social History Date Type Detail Facility Start: 04-12-2022 Tobacco smoking status Heavy t obacco smoker (finding) [facility] Tobacco smoking status Never Yudy [facility] Sex Assigned At Male [facility] Progress note 05-23-2024 Note Date & Type [...] fraction 35 to 40% Benito Lyman MD, [facility] Progress note 04-15-2024 Note Date & Type Note Facility 04-15-2024 Note [facility] Note Reason for cardiology [...] follow-up with cardiology and when Benito Lyman MD,[facility] Evaluation + Plan note Note Date & Type Note Facility Evaluation + Plan note No data available for this section [facility] Hospital Discharge instructions Note Date & Type Note Facility Hospital Discharge instructions No data available for this section [facility] Progress note Note Date & Type Note Facility Progress note No data available for this section [facility] Summary Purpose Family History No Family [...] and content) DATE CREATED AUTHOR 04/20/2022 [facility] DATE CREATED AUTHOR AUTHOR'S ORGANIZ ATION 02/01/2024 [facility] DATE CREATED AUTHOR AUTHOR'S ORGANIZ ATION 02/13/2024 Kelly Winchester [facility] DATE CREATED AUTHOR AUTHOR'S ORGANIZ ATION 05/28/2024 [facility] Care Team (unrecognized sect ion and content) Personnel Name: Lauren Coto CNP Address: [address] [place] [address] Personnel Name: Lauren Coto CNP Address: Address: [address] [place] [address] Personnel Name: CHICA LAUREN KNOWLES Address: Address: [address] [place] [address] FOR RECORDS PERTAINING TO PATIENTS WHO ARE [...] BE BASED ON THE PRIMARY CLINICAL RECORDS. [employer] provides no warranty or guarantee of the accuracy or completeness of information in this document.
[2024-06-11] MEDS: LACTATED RINGER'S SOLUTION 1,000 ML 50 ML IV ×2 (07:54→09:55)
[2024-06-11] MEDS: CEFAZOLIN SODIUM 2 GM/50 ML D5W PREMIX IV (08:02)
[2024-06-11] MEDS: BUPIVACAINE LIPOSOME/PF 266 MG/13.3 ML VIAL INJ (08:42)
[2024-06-11] MEDS: 0.9 % SODIUM CHLORIDE 10 ML 20 ML INJ (08:42)
[2024-06-11] MEDS: BUPIVACAINE HCL 0.25% PF 25 MG/10 ML VIAL 20 ML INJ (08:42)
[2024-06-11 09:11] LABS: Glucometer 126 mg/dL (74-106)
--- NOTE | 2024-06-11 10:00 | P.ON_ITS ---
Date of procedure: 06/11/24 Pre-op diagnosis: left inguinal symptomatic hernia Post-op diagnosis: same as pre-op Procedure: Robotic laparoscopic left inguinal hernia repair with TAP block The patient was brought to the operating room and placed supine on the operating room table. Cardiopulmonary monitoring was initiated. General anesthesia was induced without any complication. A time-out was performed.? Pre-operative antibiotics were given. EPC cuffs were on the lower extremities. Both arms were tucked. The abdomen was prepped and draped in the usual sterile fashion. The abdomen was entered approximately 12 cm distal to the xyophoid process and to the left of the midline. To do this a skin incision was made. A 5mm 0 degree laparoscope was then introduced using an optical access trocar. Pneumoperitoneum was then established through this trocar. Once pneumoperitoneum was created 2 additional 8 mm DA Umesh ports were placed under direct visualization in the mid and left abdomen along the same line just superior to the umbilicus. The 5mm optiview port was then upsized to a 8mm robotic port under direct visualization.? Prior to proceeding with the operation, an intraoperative TAP block was performed. ?Under visualization with the laparoscope, a needle was inserted percutaneously and, confirming that I was in the right plane, 30 mL of a mixture of Ropivacaine and Decadron were injected on both sides for a total of 60 ml. ?Good separation of the muscle planes was seen bilaterally indicating good placement of the anesthetic solution. The robot was then docked and a 30 degree robotic scope was placed into the abdomen.? Both inguinal regions were inspected and the median umbilical ligament, medial umbilical ligaments, and lateral umbilical folds were identified.? A left indirect hernia was noted.? There was no right inguinal hernia on inspection. The peritoneum on the left side was incised with scissor electrocautery along a line 2 cm above the superior edge of the hernia defect, extending from the medial umbilical ligament to the anterior superior iliac spine. ?The peritoneal flap was mobilized inferiorly using blunt dissection.? Blunt dissection was down from the ASIS to the lateral edge of the internal ring.? The inferior epigastric vessels were exposed and kept superior to the dissection planes at all times during the operation.? Medial dissection was done until José's ligament was exposed.? The cord structures and hernia sac were identified. Cord structures were preserved during the dissection and reduction of hernia sac.? The cord structures were dissected free from the hernia sac circumferentially. The hernia sac containing fat was reduced from the defect. Hemostasis was maintained. A Critical view of the rafaela-pectineal orifice was achieved. Once dissection was completed, a 15 cm x 9 cm piece of [employer] Progrip mesh was rolled double scroll and placed within the peritoneum flap.? The mesh was centered over the deep inguinal ring and unrolled to cover direct and indirect hernia spaces. It was noted to lay flat, in good position and w ithout crimpage. The peritoneum was closed with running 2-0 V lock suture. The intra-abdominal cavity was grossly inspected there were no signs of bleeding or any other injury. The robot was undocked without complications. The pneumoperitoneum was evacuated through the remaining robotic ports and the ports removed. The port sites were closed with 4-0 Monocryl suture and then skin glue material was applied. The patient tolerated the procedure well and was transferred to the recovery room in satisfactory condition. All instruments, sharps and sponges were accounted for. Anesthesia: GETA Surgeon: Derek Coronel Estimated blood loss (mL): 7 Pathology: none sent Condition: stable Disposition: PACU
[2024-06-11] MEDS: HYDROMORPHONE HCL 0.5 MG/0.5 ML SYRINGE IV ×2 (10:31→10:40)
[2024-06-11] MEDS: OXYCODONE HCL/ACETAMINOPHEN 5MG/325MG 1 TAB PO (11:01)
== END 2024-06-11 12:31 | disposition home or self-care (01) ==
PROVIDERS: PCP Surgery; Visit Provider Surgery
PROC: (CPT 840; principal; 2024-06-11 08:20)
DX: K40.90 Unilateral inguinal hernia, without obstruction or gangrene, not specified as recurrent (principal); F17.210 Nicotine dependence, cigarettes, uncomplicated; I10 Essential (primary) hypertension
CPT/HCPCS: 49650; 36415; C1781; J0665; J0690; J1171; J2175; J2250; J2405; J2704; J3010

== ENCOUNTER 2024-08-18 15:39 | Emergency (ER) | payer MEDICAID, SELFPAY ==
[2024-08-18 15:45] VITALS: BP 157/83; PULSE 70; TEMP 36.6; O2SAT 99; BMI 27.3
--- OUTSIDE RECORDS SUMMARY | 2024-08-18 15:45 | XMS_ITS | CCD ---
Author Organization [facility] Care Team Providers Care Flight Follower Name Role Phone DR RUTH WESTON Primary Care Unavailable TRISTA, DR MIRANDA Attending Unavailable WEST, DR KARLIE Osorio Consulting Unavailable TRISTA, DR MIRANDA Admitting Unavailable TRISTA, DR MIRANDA Consulting Unavailable Lauren Hernández Primary Care Physician Unavailab LAUREN Velez Primary Care Physician BENITO LYMAN Attending Unavailable BENITO LYMAN Attending Unavailable BENITO LYMAN Admitting Unavailable BENITO LYMAN Attending Unavailable BENITO LYMAN Referring Unavailable Unallocated MD, Noms Provider Primary Care Provi arsenio KADIE CORONEL Attending Unavailable KADIE CORONEL Attending Unavailable Allergies Allergy Classification Reported Allergen(s) Allergy Type Date of Onset Reaction(s) Facility (3 sources) Tape 1 Drug allergy Eruption of skin (disorder) [facility] Comment on above: paper tape Medications Current Medications Medication Drug Class(es) Dates Sig (Normalized) Sig (Original) carvedilol 6.25 mg oral tablet (2 sources) alpha-Adrenergic Rosalio, beta-Adrenergic Rosalio Start: 05-13-2024 End: 05-13-2025 take 1 tablet by mouth in the morning carvedilol (Coreg) 6.25 MG tablet Take 6.25 mg by mouth in the morning and 6.25 mg in the evening. Take with meals. 05/13/2024 05/13/2025 Active dapagliflozin 10 mg oral tablet (2 sources) Sodium-Glucose Cotransporter 2 Inhibitor Start: 06-25-2024 End: 06-20-2025 dapagliflozin (Farxiga) 10 MG Take 10 mg by mouth 06/25/2024 06/20/2025 Active hydroCHLOROthiazide 12.5 mg / losartan potassium 50 mg oral tablet (2 sources) Thiazide Diuretic, Angiotensin 2 Receptor Rosalio take 1 tablet by mouth in the morning losartan-hydroCHL OROthiazide (Hyzaar) 50-12.5 MG tablet Take 1 tablet by mouth in the morning. Active Ibuprofen (3 sources) Nonsteroidal Anti-inflammatory Drug Start: 04-12-2022 ibuprofen Oral, q8hr, PRN as needed for pain, Refills(s) 0 Start Date: 04/12/22 Status: Ordered Completed/Discontinued Medications Medication Drug Class(es) Dates Sig (Normalized) Sig (Original) polyethylene glycol 3350 010966 mg / potassium chloride 1480 mg / sodium bicarbonate 5720 mg / sodium chloride 05212 mg powder for oral solution (3 sources) Osmotic Laxative Start: 04-12-2022 NuLYTELY Knutson oral powder for reconstitution See Instructions, 1 EA, Refill(s) 0, Prior to colonoscopy., [employer] #72, 177.8, cm, 04/12/22 15:06:00 EDT, Height/Length Dosing, 88.3, kg, 04/12/22 15:06:00 EDT, Weight Dosing Start Date: 04/12/22 Status: Ordered Problems Problem Classification Problem Date Documented Date Episodic/Chronic Coronary atherosclerosis and other heart disease (2 sources) Atherosclerotic heart disease of [place] coronary artery without angina pectoris; Translations: [Atherosclerotic heart disease of [place] coronary artery without angina pectoris] Onset: 4 Chronic Diabetes mellitus without complication (2 sources) Hyperglycemia, unspecified; Translations: [Hyperglycemia, unspecified] Onset: 4 Episodic Hypertension with complications and secondary hypertension (2 sources) Hypertensive heart disease without heart failure; Translations: [Hypertensive heart disease without heart failure] Onset: 4 Chronic Other nervous system disorders (1 source) Other chronic pain; Translations: [OTHER CHRONIC PAIN] Onset: 2 Chronic Other non-traumatic joint disorders (4 sources) Pain in right knee; Translations: [PAIN IN RIGHT KNEE] Onset: 2 Episodic Other non-traumatic joint disorders (1 source) Pain in left knee; Translations: [PAIN IN LEFT KNEE] Onset: 2 Episodic Other screening for suspected conditions (not mental disorders or infectious disease) (4 sources) Abnormal findings on diagnostic imaging of heart and coronary circulation; Translations: [Abnormal electrocardiogram [ECG] [EKG]] Onset: 4 Episodic Rosa-; endo-; and myocarditis; cardiomyopathy (except that caused by tuberculosis or sexually transmitted disease) (2 sources) Other cardiomyopathies; Translations: [Other cardiomyopathies] Onset: 4 Chronic Unclassified (3 sources) Patient encounter status 04-12-2022 Results Test Name Value Interpretation Reference Range [facility] ity Office Visiton 06-17-2024 Follow-up visit [id number] PrattKarlie nguyen Glory 1970 M Date Provider Department Center 06/17/2024 [id number] RODRIGUEZ [facility] Family History Problem Relation Age of Onset Other Mother No Known Problems Father Family Status - Relation Status Age at Mother Father Level of Service:60304 [place] OFFICE/OUTPATIENT ESTABLISHED MOD [facility] 30 MIN Reason for Visit and Comments: Post-Cath [731] - Had his hernia surgery and is feeling ok. Still a little sore s/p cath. Hypertension [844886] - He's been out of losartan-hydrochloroth iazide for a few days, as the pharmacy was out of stock. Leg Swelling [266363] - Has noticed some the past few days. Swelling in his hands also. Denies chest pain and SOB. Normal [facility] ANESon 05-23-2024 ANES -- Attestation signed by Benito Lyman MD at 05/23/2024 11:06 AM I personally saw and examined the patient on the same date of service as resident/fellow Dr Quijano. I discussed the findings and therapeutic plan with the resident/fellow Dr Sahu. I agree with the documentation, except for any edits/updates below. Teaching Physician's Revisions: None Benito Lyman MD, [facility] Patient: Karlie Pratt Procedure Information Date/Time: 05/23/24 1000 Procedure: Coronary angiography (Left) - PC APPROVED Location: [facility] NURSING DIRECTOR 2 BIPLANE / [facility] (Cath) Providers: Benito Lyman MD Clinical information reviewed: Allergies Meds Physical Exam Airway Mallampati: II TM distance: >3 FB Neck ROM: full Cardiovascular Rhythm: regular Rate: normal (-) murmur, peripheral edema Dental Pulmonary Breath sounds clear to auscultation Abdominal - normal exam Anesthesia Plan ASA 2 other (Conscious sedation. ) Additional Equipment Requests Normal [facility] HPon 05-23-2024 History Of Present Illness Karlie Pratt is a 53 y.o. male presenting for [...] titration on outpatient basis. Ingrid Wallis MD Archaeology Professor - PGY6 [facility] NURSNOTEon 05-23-2024 NURSNOTE RN educated pt on [...] off of unit with all of belongings. [facility] 36on 05-13-[address] Lyman regarding patient's echo from 05/08/2024. EF is reduced. She ordered seamus cath and carvedilol 6.25mg bid. I spoke with patient and made him aware. Annette call surgeon's office and made them aware patient would not be cleared for hernia surgery tomorrow. Patient agreed to heart cath. Orders entered. [facility] 36 You ordered echo on this patient for pre-op. He had it last week and the result is scanned into media executive. Can you please review and let me know once you've cleared him? Thanks. [facility] Orders Onlyon 05-13-2024 Orders Only [id number] Karlie Pratt 1970 M Date Provider Department Center 05/13/2024 [id number] WARNER Family History Problem Relation Age of Onset Other Mother No Known Problems Father Family Status - Relation Status Age at Mother Father [facility] Office Visiton 04-15-2024 Follow-up visit [id number] Karlie Pratt 1970 M Date Provider Department Center 04/15/2024 [id number] RODRIGUEZ Family History Problem Relation Age of Onset Other Mother No Known Problems Father Family Status - Relation Status Age at Mother Father Level of Service:03960 [place] OFFICE/OUTPATIENT NEW MODERATE MDM 45 MINUTES Reason for Visit and Comments: New Patient [632] - New patient , here for hernia surgery clearance. Scheduled 04/23. No cardio symptoms. Pt has hypertenion. [facility] Referrals Officeon 4 Referrals Office [id number] 11 [id number] 0TIFF Normal [facility] Referrals Office [id number] 11 [id number] 0TIFF Normal [facility] XR KNEE LESLY 3 Von 03-10-2022 [...] KARLIE PEREIRA Date: 2022-03-10 18:21 Normal [facility] Vital Signs Date Time Vital Sign Value Performing Clinician Faci lity 06-26-2024 13:52-0400 Body height 175.3 cm [employer] Phone: [facility] [employer] 06-26-2024 13:52-0400 Body mass index (BMI) [Ratio] 28.35 kg/m2 [employer] Phone: [facility] [employer] 06-26-2024 13:52-0400 Body weight 87.09 kg [employer] Phone: [facility] [employer] 06-26-2024 13:52-0400 Heart rate 78 /min [employer] Phone: [facility] [employer] 06-26-2024 13:52-0400 Respiratory rate 14 /min [employer] Phone: [facility] [employer] 06-26-2024 13:52-0400 SaO2% (BldA) [Mass fraction] 96 % [employer] Phone: [facility] [employer] Encounters Encounter Date Encounter Type Care Provider Facility Start: 06-26-2024 End: 06-26-2024 Bamboo flowsheet [employer] Phone: [facility] Start: 06-26-2024 End: 06-26-2024 Bamboo flowsheet Kadie Coronel DO Work Phone: [facility] Start: 06-26-2024 End: 06-26-2024 ambulatory KADIE CORONEL Not Available Start: 06-26-2024 End: 06-26-2024 Postop follow up visit related to original px Kadie Coronel DO Work Phone: [facility] Comment on above: S/P left inguinal he rnia repair (Primary Dx) Start: 06-17-2024 End: 06-17-2024 ambulatory [facility] Start: 05-23-2024 End: 05-23-2024 ambulatory [facility] Start: 04-15-2024 End: 04-15-2024 ambulatory [facility] Start: 02-12-2024 End: 02-13-2024 Pre-admission assessment [facility] Start: 01-31-2024 End: 01-31-2024 ambulatory KADIE CORONEL Not Available Start: 04-12-2022 End: 08-16-2022 Recurring Tara SPARKS [facility] Start: 04-12-2022 End: 05-26-2022 Pre-admission assessment [facility] [employer] [facility] Start: 03-10-2022 End: 03-11-[address] DOCTOR WESTON Facility:H1 Procedures Date Procedure Procedure Detail Performing Clinician History of repair of inguinal hernia S/P left inguinal hernia repair Kadie Coronel DO Work Phone: Structure of left fo ot (body structure) [facility] Comment on above: Surgery Plan of Treatment Date Care Activity Detail Author Start: 04-28-2024 Influenza vaccination Influenza Vacc ine (#1) [facility] Start: 1970 Screening for malign ant neoplasm of colon [facility] Immunizations Immunization Date Immunization Notes Care Provider Sourav moses 10-05-2023 influenza virus vacc ine, unspecified formulation Kadie Coronel DO Work Phone: [facility] Payers Date Payer Category Payer Medicaid [facility] [employer] [place] [id number] 2023 Private Health Insurance [id number] 1970 Unknown [id number] 1970 Unknown [id number] 1970 Unknown [id number] Unknown [id number] Social History Date Type Detail Facility Start: 04-12-2022 Tobacco smoking status Heavy t obacco smoker (finding) [facility] Tobacco smoking status Never [facility] Start: 01-31-2024 Sex Assigned At Male F [facility] Start: 01-31-2024 End: 06-26-2024 Tobacco smoking status NHIS Smokes tobacco daily [facility] History of tobacco use Cigarette Smoker [facility] Start: 01-31-2024 End: 06-26-2024 Tobacco use and exposure Smokeless tobacco non-user [facility] Start: 06-05-2024 History of Social function [facility] Start: 1970 Sex assigned at Not on file [facility] History of Present illness Narrative 06-26-2024 Kadie Coronel DO - 06/26/2024 1:45 PM EDT Note Date & Type Note Facility 06-26-2024 History of Presen t illness Narrative General Surgery H&P Karlie Pratt 1970 Karlie Pratt is a 53 y.o. male presents with chief complaint of Post-op (Pt presents today post op robotic lap left inguinal hernia repair with mesh on 06/11. He states that he is not having any pain. Incisions are healing well. Pt is back to work, returned the next day. Doing well postoperatively. Denies fevers, chills, or sweats. Denies nausea or vomiting. Tolerating diet and having regular bowel function. No pain currently. No complaints at this time. Went over lifting restrictions again with the patient and the importance of no heavy lifting for 6 weeks after the procedure. He voiced understanding. SUBJECTIVE: MEDICATIONS: ALLERGIES Current Outpatient Medications Medication Instructions carvedilol (COREG) 6.25 mg, 2 times daily with meals dapagliflozin (FARXIGA) 10 mg losartan-hydroCHLOROthiazide (Hyzaar) 50-12.5 MG tablet 1 tablet, Daily RT No Known Allergies PAST MEDICAL HISTORY: SOCIAL HISTORY SURGICAL HISTORY: No past medical history on file. Social History Tobacco Use Smoking status: Every Day Current packs/day: 1.00 Types: Cigarettes Smokeless tobacco: Never Past Surgical History: Procedure Laterality Date ABDOMINAL HERNIA REPAIR 06/11/2024 CARDIAC CATHETERIZATION No family history on file. No Known Allergies Past Surgical History: Procedure Laterality Date ABDOMINAL HERNIA REPAIR 06/11/2024 CARDIAC CATHETERIZATION Tobacco Use: High Risk (06/17/2024) Received from [facility] Patient History Smoking Tobacco Use: Every Day Smokeless Tobacco Use: Never Passive Exposure: Not on file Alcohol Use: Not on file Depression: Not on file Physical Activity: Not on file REVIEW OF SYMPTOMS: Review of Systems 10 systems were reviewed. Positives noted above. Remainder are negative per CMS guidelines OBJECTIVE: Visit Vitals Pulse 78 Resp 14 Ht 5' 9 Wt 192 lb SpO2 96% BMI 28.35 kg/m Smoking Status Every Day BSA 2.06 m Physical Exam General: AAOx3, NAD Head: atraumatic normocephalic Neck: trachea midline. No masses or lymphadenopathy Heart: Regular rate and rhythm Lungs: equal chest rise and fall, non labored breathing Abdomen: soft, nontender, and non distended, incisions c/d/I, left groin on tender no hernia noted Ext: motor 5/5 all extremities with no gross deformities Psych: alert and oriented, behavior appropriate ASSESSMENT AND PLAN: Assessment/Plan Diagnoses and all orders for this visit: S/P left inguinal hernia repair robotic lap left inguinal hernia repair with mesh on 06/11 Patient doing well. No complaints. Instructed to continue daily washing of incisions and no swimming/bathing until 14 days past procedure or until incisions fully healed. No lifting more then 12-15lbs until 28 days after procedure. Ok to return to work with lifting restrictions mentioned above. Follow up as needed. Thank you, Ileana Coronel DO documented in this encounter [facility] Progress note 06-17-2024 Note Date & Type Note Facility 06-17-2024 Note [facility] Note Reason for cardiology visit: Follow-up Chief Complaint: No cardiac complaint HPI: 06/17/2024 Patient is here today for follow-up visit. He underwent inguinal hernia repair without any complications He has been doing well. 9 denies any chest pain or shortness of breath at rest or with exertion. Denies orthopnea or paroxysmal nocturnal dyspnea or dizziness or palpitations or legs edema. He complains that his toes are cold a lot of time. He does not recognize change in color. He states that when it is cold the tip of his fingers also are cold and numb, no color change. 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 04/15/2024 Karlie Pratt is a 53 y.o. male without prior [...] artery disease at age 71 or 72. ROS: All systems were reviewed and they were negative except for the positive findings noted above in the history Past Medical History He has a past medical history of Abnormal ECG, Coronary artery disease, Heart valve disease, Hypertension, NICM (nonischemic cardiomyopathy) (CMS/HCC), and Nonischemic cardiomyopathy (CMS/HCC). Surgical History He has a past surgical history that includes Leg Surgery; Foot surgery; and Cardiac catheterization. Social History He reports that he has been smoking cigarettes. He has a 78.00 pack-year smoking history. He has never used smokeless tobacco. He reports current alcohol use of about 12.0 standard drinks of alcohol per week. He reports that he does not use drugs. Family History Family History Problem Relation Name Age of Onset Other (heart issues) Mother No Known Problems Father Allergies Patient has no known allergies. Medications Current Outpatient Medications: carvedilol (Coreg) 6.25 mg tablet, Take 1 tablet (6.25 mg) by mouth with breakfast and with evening meal., Disp: 180 tablet, Rfl: 3 dapagliflozin propanediol (Farxiga) 10 mg, Take 1 tablet (10 mg) by mouth in the morning., Disp: 30 tablet, Rfl: 0 losartan-hydroCHLOROthiazide (Hyzaar) 50-12.5 mg tablet, Take 1 tablet by mouth in the morning., Disp: , Rfl: Last Recorded Vitals Visit Vitals BP 146/80 (BP Location: Right arm, Patient Position: Sitting) Pulse 72 Ht 1.753 m (5' 9 ) Wt 88 kg (194 lb) SpO2 98% BMI 28.65 kg/m??? Smoking Status Every Day BSA 2.07 m??? Physical Examination: GENERAL: alert and oriented [...] PSYCH: appropriate mood, affect, and judgement. Labs: Labs 05/21/2024 Sodium 137, potassium 3.3, BUN 13, creatinine 0.9, GFR above 60, glucose 115, calcium 9.3 White blood count 10, hemoglobin 15.1, hematocrit 43.6, platelets 269 01/23/2024 White blood count 11.7, hemoglobin 14.6, [...] normal sinus rhythm, LVH with ST-T abnormality Cardiac cath 05/23/2024 Coronary Findings Diagnostic Dominance: Right Left Main The vessel is large and is angiographically normal. Left Anterior Descending The vessel is large. 20% stenosis at its mid portion. L (more content not included)... [facility] Progress note 05-23-2024 Note Date & Type [...] fraction 35 to 40% Benito Lyman MD, [facility] Progress note 04-15-2024 Note Date & Type Note Facility 04-15-2024 Note [facility] Note Reason for cardiology consult: Cardiac clearance for inguinal hernia repair Chief Complaint: No cardiac complaint HPI: Karlie Pratt is a 53 y.o. male without prior [...] follow-up with cardiology and when Benito Lyman MD,[facility] Evaluation + Plan note Note Date & Type Note Facility Evaluation + Plan note No data available for this section [facility] Evaluation note Note Date & Type Note Facility Evaluation note Diagnosis S/P left inguinal hernia repair- Primary Other postprocedural status documented in this encounter [facility] Hospital Discharge instructions Note Date & Type Note Facility Hospital Discharge instructions No data available for this section [facility] Progress note Note Date & Type Note Facility Progress note No data available for this section [facility] Summary Purpose Family History No Family History Records FoundNo Family History Records Found No data available for this section No Family History Records FoundNo Family History Records Found Advance Directives No Advanced Directives Records FoundNo Advanced Directives Records FoundNo Advanced Directives Records FoundNo Advanced Directives Records Found Additional Source Comments (unrecognized sect ion and content) No Status Records FoundNo Status Records FoundNo Status Records FoundNo Status Records Found INFORMATION SOURCE (unrecogn ized section and content) DATE CREATED AUTHOR 04/20/2022 [facility] DATE CREATED AUTHOR AUTHOR'S ORGANIZ ATION 02/13/2024 [facility] DATE CREATED AUTHOR AUTHOR'S ORGANIZ ATION 06/18/2024 [facility] DATE CREATED AUTHOR AUTHOR'S ORGANIZ ATION 06/28/2024 [facility] EPIC Care Team (unrecognized sect ion and content) Flight Follower Relationship Specialty Start Date End Date Unallocated, [place] [address] PCP - General 07/04/23 Flight Follower Relationship Specialty Start Date End Date Unallocated, [place] [address] PCP - General 07/04/23 Reason for Visit (unrecogniz ed section and content) Reason Comments Post-op Pt presents today po st op left inguinal hernia repair on 06/11. He states that he is not having any pain. Incisions are healing well. Pt is back to work, returned the next day. FOR RECORDS PERTAINING TO PATIENTS WHO ARE [...] BE BASED ON THE PRIMARY CLINICAL RECORDS. [facility] [employer] [facility]. provides no warranty or guarantee of the accuracy or completeness of information in this document.
--- NOTE | 2024-08-18 15:57 | ED.DENTAL1 ---
HPI - Dental/Oral General Chief complaint: Dental/Oral Stated complaint: DENTAL Time Seen by Provider: 08/18/24 15:54 Source: patient Mode of arrival: walk-in Limitations: no limitations History of Present Illness HPI Narrative: Patient is a 53-year-old male with a history of tobacco abuse and dental caries who presents to the emergency department for pain in the right maxilla with associated swelling for the last day. He states he knows he needs to see a dentist but does not currently have one. He has not had any fevers or drainage from the teeth. No injury to the area. No difficulty swallowing. Related Data Home Medications ?Medication ?Instructions ?Recorded ?Confirmed carvedilol 6.25 mg tablet 6.25 mg PO Q12H 05/30/24 06/11/24 dapagliflozin propanediol 10 mg 10 mg PO DAILY HTN 05/30/24 06/11/24 tablet (Farxiga) losartan 50 mg-hydrochlorothiazide 1 tab PO DAILY 05/30/24 06/11/24 12.5 mg tablet Previous Rx's ?Medication ?Instructions ?Recorded cyclobenzaprine 10 mg tablet 10 mg PO TID muscle tightness #20 06/11/24 tabs docusate sodium 100 mg capsule 100 mg PO BID 10 days #20 caps 06/11/24 (Colace) ondansetron 4 mg disintegrating 4 mg PO Q8H 5 days #15 tabs 06/11/24 tablet oxycodone-acetaminophen 5 mg-325 1 tab PO Q4H PRN abd pain 3 days 06/11/24 mg tablet (Percocet) #10 tabs amoxicillin 875 mg-potassium 1 tab PO Q12H #20 tabs 08/18/24 clavulanate 125 mg tablet hydrocodone 5 mg-acetaminophen 325 1 tab PO Q6H PRN pain 3 days #12 08/18/24 mg tablet tabs ondansetron 4 mg disintegrating 4 mg PO Q6H PRN nausea and 08/18/24 tablet vomiting #12 tabs Allergies Allergy/AdvReac Type Severity Reaction Status Date / Time No Known Drug Allergies Allergy Verified 05/30/24 13:37 Review of Systems ROS Constitutional Denies: fever or chills Ears, nose, mouth, and throat Denies: throat pain or nasal congestion Cardiovascular Denies: chest pain Respiratory Denies: shortness of breath Gastrointestinal Denies: nausea or vomiting Integumentary/Breast Denies: rash Neurological Denies: numbness in extremities or weakness in extremities Hematologic/Lymphatic Denies: easy bruising or easy bleeding PFSH PFSH Medical History (Updated 08/18/24 @ 15:55 by CHAPARRO Edwards) Nonischemic cardiomyopathy ?I42.8 - Other cardiomyopathies (ICD-10) Aortic stenosis ?I35.0 - Nonrheumatic aortic (valve) stenosis (ICD-10) H/O cardiac murmur ?Z86.79 - Personal history of other diseases of the circulatory system (ICD-10) Abnormal EKG (~01/2024) ?R94.31 - Abnormal electrocardiogram [ECG] [EKG] (ICD-10) Hypertension ?I10 - Essential (primary) hypertension (ICD-10) Osteomyelitis ?M86.9 - Osteomyelitis, unspecified (ICD-10) Foot fracture, left ?S92.902A - Unspecified fracture of left foot, initial encounter for closed fracture (ICD-10) Inguinal hernia ?K40.90 - Unilateral inguinal hernia, without obstruction or gangrene, not specified as recurrent (ICD-10) Surgical History (Updated 02/12/24 @ 09:36 by Yasmine Moe, RAUL) History of surgery on lower extremity ?Z98.890 - Other specified postprocedural states (ICD-10) H/O foot surgery ?Z98.890 - Other specified postprocedural states (ICD-10) Family History (Updated 02/12/24 @ 08:55 by Yasmine Moe, RN) Other Family history of COPD (chronic obstructive pulmonary disease) Family history of cancer Family history of diabetes mellitus Family history of stroke Heart disease Social History Within the past year, how often did you have a drink containing alcohol: 2-3 times a week Smoking status: Current every day smoker Nicotine containing products detail: pack per day Non-prescribed substance use: denies use Non-prescribed substance use details: used to use cannabis years agol 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 No visible dental abscess. No redness or swelling under the tongue. No trismus or drooling. Clear speech. Uvula midline. Airway widely open and patent. Respiratory: No respiratory distress Extremities: Moves extremities equally Psych: Normal mood and affect Neuro: No focal neuro deficit Skin: Warm, dry, intact Constitutional Vital Signs, click to edit/add: Last Vital Signs Temp 97.8 F 08/18/24 15:45 Pulse 70 08/18/24 15:45 Resp 18 08/18/24 15:45 BP 157/83 H 08/18/24 15:45 Pulse Ox 99 08/18/24 15:45 O2 Del Method Room Air 08/18/24 15:45 Course Vital Signs Vital signs: Vital Signs Temperature 97.8 F 08/18/24 15:45 Pulse Rate 70 08/18/24 15:45 Respiratory Rate 18 08/18/24 15:45 Blood Pressure 157/83 H 08/18/24 15:45 Pulse Oximetry 99 08/18/24 15:45 Oxygen Delivery Method Room Air 08/18/24 15:45 Temperature 97.8 F 08/18/24 15:45 Pulse Rate 70 08/18/24 15:45 Respiratory Rate 18 08/18/24 15:45 Blood Pressure 157/83 H 08/18/24 15:45 Pulse Oximetry 99 08/18/24 15:45 Oxygen Delivery Method Room Air 08/18/24 15:45 MDM - Dental/Oral MDM Narrative Medical decision making narrative: Exam is consistent with dental infection/early dental abscess, likely secondary to dental caries in the maxilla. Patient instructed to follow-up with dental and return to the ER if symptoms change or worsen. Patient was given a list of dental clinics, topical dental analgesia and prescriptions for short course of analgesics, Augmentin and Zofran. SUPERVISED APC VISIT, PHYSICIAN ATTESTATION: Based on the medical record the care appears appropriate. ? Medical Records Attestation: I reviewed the patient's medical records. Discharge Plan Discharge Chief Complaint: Dental/Oral Clinical Impression: Toothache, Dental caries Patient Disposition: Home, Self-Care Time of Disposition Decision: 15:55 Condition: Good Prescriptions / Home Meds: New hydrocodone-acetaminophen 5-325 mg tablet 1 tab PO Q6H PRN (Reason: pain) 3 Days Qty: 12 0RF Rx Instructions: DX: K08.89 amoxicillin-pot clavulanate 875-125 mg tablet 1 tab PO Q12H Qty: 20 0RF ondansetron 4 mg tablet,disintegrating 4 mg PO Q6H PRN (Reason: nausea and vomiting) Qty: 12 0RF No Action carvedilol 6.25 mg tablet 6.25 mg PO Q12H dapagliflozin propanediol [Farxiga] 10 mg tablet 10 mg PO DAILY losartan-hydrochlorothiazide 50-12.5 mg tablet 1 tab PO DAILY cyclobenzaprine 10 mg tablet 10 mg PO TID Qty: 20 0RF oxycodone-acetaminophen [Percocet] 5-325 mg tablet 1 tab PO Q4H PRN (Reason: abd pain) 3 Days Qty: 10 0RF docusate sodium [Colace] 100 mg capsule 100 mg PO BID 10 Days Qty: 20 0RF ondansetron 4 mg tablet,disintegrating 4 mg PO Q8H 5 Days Qty: 15 0RF Print Language: Surinamese Instructions: Toothache (ED) Referrals: Derek Coronel DO [Primary Care Provider] - 1 week
[2024-08-18] MEDS: BENZOCAINE 30 ML, lidocaine HCL 15 ML MM (16:05)
== END 2024-08-18 16:07 | disposition home or self-care (01) ==
PROVIDERS: Emergency Provider Emergency Medicine; PCP Surgery
DX: K02.9 Dental caries, unspecified (principal); K08.89 Other specified disorders of teeth and supporting structures; F17.210 Nicotine dependence, cigarettes, uncomplicated
CPT/HCPCS: 99284

== ENCOUNTER 2024-09-23 07:22 | Outpatient (OUT) | payer MEDICAID, SELFPAY ==
--- OUTSIDE RECORDS SUMMARY | 2024-09-23 07:25 | XMS_ITS | CCD ---
Author Organization [facility] Care Team Providers Care Baker Apprentice Name Role Phone TRISTA, DR MIRANDA Primary Care Unavailable MIS, DR MIRANDA Attending Unavailable WEST, DR KARLIE Osorio Consulting Unavailable TRISTA, DR MIRANDA Admitting Unavailable TRISTA, DR MIRANDA Consulting Unavailable Lauren Hernández Primary Care Physician Unavailab LAUREN Velez Primary Care Physician [phone] Unallocated MD, Noms Provider Primary Care Provi arsenio KADIE CORONEL Attending Unavailable KADIE CORONEL Attending Unavailable BENITO LYMAN Attending Unavailable BENITO LYMAN Attending Unavailable BENITO LYMAN Admitting Unavailable BENITO LYMAN Attending Unavailable BENITO LYMAN Referring Unavailable Allergies Allergy Classification Reported Allergen(s) Allergy Type Date of Onset Reaction(s) Facility (3 sources) Tape 1 Drug allergy Eruption of skin (disorder) [facility] Comment on above: paper tape [...] Sig (Normalized) Sig (Original) polyethylene glycol 3350 181022 mg / potassium chloride 1480 mg / sodium bicarbonate 5720 mg / sodium chloride 26955 mg powder for oral solution (3 sources) Osmotic Laxative Start: 04-12-2022 NuLYTELY Knutson oral powder for reconstitution See Instructions, 1 EA, Refill(s) 0, Prior to colonoscopy., [employer] #72, 177.8, cm, 04/12/22 15:06:00 EDT, Height/Length Dosing, 88.3, kg, 04/12/22 15:06:00 EDT, Weight Dosing Start Date: 04/12/22 Status: Ordered Problems Problem Classification Problem Date Documented Date Episodic/Chronic Coronary atherosclerosis and other heart disease (2 sources) 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; Translations: [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] Onset: 4 [...] Results Test Name Value Interpretation Reference Range [facility] ity Office Visiton 06-17-2024 Follow-up visit [id number] PrattKarlie nguyen Glory 1970 M Date Provider Department Center 06/17/2024 [id number]-ERSVVFBENITO RODRIGUEZ [facility] Family History Problem Relation Age of Onset Other Mother No Known Problems Father Family Status - Relation Status Age at Mother Father Level of Service:68964 [place] OFFICE/OUTPATIENT ESTABLISHED MOD [facility] 30 MIN Reason for Visit and Comments: Post-Cath [731] - Had his hernia surgery and is feeling ok. Still a little sore s/p cath. Hypertension [855373] - He's been out of losartan-hydrochloroth iazide for a few days, as the pharmacy was out of stock. Leg Swelling [717055] - Has noticed some the past few days. Swelling in his hands also. Denies chest pain and SOB. Normal [facility] ANESon 05-23-2024 ANES -- Attestation signed by Benito Lyman MD at 05/23/2024 11:06 AM I personally saw and examined the patient on the same date of service as resident/fellow Dr Quijano. I discussed the findings and therapeutic plan with the resident/fellow Dr Sahu. I agree with the documentation, except for any edits/updates below. Teaching Physician's Revisions: None Benito Lyman MD, [facility] Patient: Karlie Pratt Procedure Information Date/Time: 05/23/24 1000 Procedure: Coronary angiography (Left) - PC APPROVED Location: [facility] LENDING MANAGER 2 [address]IP[address]ANE / [facility] (Cath) Providers: Benito Lyman MD Clinical information reviewed: Allergies Meds Physical Exam Airway Mallampati: II TM distance: >3 FB Neck ROM: full Cardiovascular Rhythm: regular Rate: normal (-) murmur, peripheral edema Dental Pulmonary Breath sounds clear to auscultation Abdominal - normal exam Anesthesia Plan ASA 2 other (Conscious sedation. ) Additional Equipment Requests Normal [facility] HPon 05-23-2024 History Of Present Illness [...] titration on outpatient basis. Ingrid Wallis MD Transaction Coordinator - PGY6 [facility] NURSNOTEon 05-23-2024 NURSNOTE RN educated pt [...] off of unit with all of belongings. [facility] 36on 05-13-[address] Lyman regarding patient's echo from 05/08/2024. EF is reduced. She ordered seamus cath and carvedilol 6.25mg bid. I spoke with patient and made him aware. Annette call surgeon's office and made them aware patient would not be cleared for hernia surgery tomorrow. Patient agreed to heart cath. Orders entered. [facility] 36 You ordered echo on this patient for pre-op. He had it last week and the result is scanned into manager media relations. Can you please review and let me know once you've cleared him? Thanks. [facility] Orders Onlyon 05-13-2024 Orders Only [id number] Karlie Pratt 1970 M Date Provider Department Center 05/13/2024 928GUILLE WARNER Family History Problem Relation Age of Onset Other Mother No Known Problems Father Family Status - Relation Status Age at Mother Father [facility] Office Visiton 04-15-2024 Follow-up visit [id number] Karlie Pratt 1970 M Date Provider Department Center 04/15/2024 [id number] RODRIGUEZ Family History Problem Relation Age of Onset Other Mother No Known Problems Father Family Status - Relation Status Age at Mother Father Level of Service:17674 [place] OFFICE/OUTPATIENT NEW MODERATE MDM 45 MINUTES Reason for Visit and Comments: New Patient [632] - New patient , here for hernia surgery clearance. Scheduled 04/23. No cardio symptoms. Pt has hypertenion. [facility] Referrals Officeon 4 Referrals Office [id number] 11 [id number] 0TIFF Normal [facility] Referrals Office [id number] 11 [id number] 0TIFF Normal [facility] XR KNEE LESLY 3 Von 03-10-2022 [...] by: KARLIE PEREIRA Date: 2022-03-10 18:21 Normal [facility] Vital Signs Date Time Vital Sign Value Performing Clinician Faci lity 06-26-2024 13:52-0400 Body height 175.3 cm [employer] Phone: [facility] 06-26-2024 13:52-0400 Body mass index (BMI) [Ratio] 28.35 kg/m2 [employer] Phone: [facility] 06-26-2024 13:52-0400 Body weight 87.09 kg [employer] Phone: [facility] 06-26-2024 13:52-0400 Heart rate 78 /min [employer] Phone: [facility] 06-26-2024 13:52-0400 Respiratory rate 14 /min [employer] Phone: [facility] 06-26-2024 13:52-0400 SaO2% (BldA) [Mass fraction] 96 % [employer] Phone: [facility] Encounters Encounter Date Encounter Type Care Provider Facility Start: 06-26-2024 End: 06-26-2024 Bamboo flowsheet [facility] Phone: [facility] Start: 06-26-2024 End: 06-26-2024 Bamboo flowsheet Kadie Coronel DO Work Phone: [facility] Start: 06-26-2024 End: 06-26-2024 ambulatory KADIE CORONEL Not Available Start: 06-26-2024 End: 06-26-2024 Postop follow up visit related to original px Kadie Coronel DO Work Phone: [facility] Comment on above: S/P left inguinal he rnia repair (Primary Dx) Start: 06-17-2024 End: 06-17-2024 ambulatory [facility] Start: 05-23-2024 End: 05-23-2024 ambulatory [facility] Start: 04-15-2024 End: 04-15-2024 ambulatory [facility] Start: 02-12-2024 End: 02-13-2024 Pre-admission assessment [place] [facility] Start: 01-31-2024 End: 01-31-2024 ambulatory KADIE CORONEL Not Available Start: 04-12-2022 End: 08-16-2022 Recurring Tara SPARKS [facility] Start: 04-12-2022 End: 05-26-2022 Pre-admission assessment [employer] [facility] Start: 03-10-2022 End: 03-11-2022 ambulatory [...] Healthcare Payers Date Payer Category Payer Medicaid [employer] [place] [id number] 2023 Medicaid [id number] 1970 Unknown [id number] 1970 Unknown [id number] 1970 Unknown [id number] Unknown [id number] Social History Date Type Detail Facility Start: 04-12-2022 Tobacco smoking status Heavy t obacco smoker (finding) [facility] Tobacco smoking status Never Bonisharan [facility] Start: 01-31-2024 Sex Assigned At Male F [facility] Start: 01-31-2024 End: 06-26-2024 Tobacco smoking status NHIS Smokes tobacco daily [facility] History of tobacco use Cigarette Smoker [facility] Start: 01-31-2024 End: 06-26-2024 Tobacco use and exposure Smokeless tobacco non-user [facility] Start: 01-31-2024 History of Social function [facility] Start: [...] Use: High Risk (06/17/2024) Received from [facility] Patient History Smoking Tobacco Use: Every Day [...] Coronel DO documented in this encounter [facility] Progress note 06-17-2024 Note Date & Type Note Facility 06-17-2024 Note [facility] Note Reason for cardiology [...] mid portion. L (more content not included)... [facility] Progress note 05-23-2024 Note Date & [...] fraction 35 to 40% Benito Lyman MD, [facility] Progress note 04-15-2024 Note Date & Type Note Facility 04-15-2024 Note [facility] Note Reason for cardiology [...] cardiology and when Benito Lyman MD,[facility] Evaluation + Plan note Note Date & Type Note Facility Evaluation + Plan note No data available for this section [facility] Evaluation note Note Date & Type Note Facility Evaluation note Diagnosis S/P left inguinal hernia repair- Primary Other postprocedural status documented in this encounter [facility] Hospital Discharge instructions Note Date & Type Note Facility Hospital Discharge instructions No data available for this section [facility] Progress note Note Date & Type Note Facility Progress note No data available for this section [facility] Summary Purpose Family History No [...] and content) DATE CREATED AUTHOR 04/20/2022 [facility] DATE CREATED AUTHOR AUTHOR'S ORGANIZ ATION 02/13/[address] [facility] DATE CREATED AUTHOR AUTHOR'S ORGANIZ ATION 06/28/2024 [facility] EPIC DATE CREATED AUTHOR AUTHOR'S ORGANIZ ATION 08/18/2024 [facility] Care Team (unrecognized sect ion and content) Baker Apprentice Relationship Specialty Start Date End Date Unallocated, [place] [address] PCP - General 07/04/23 Baker Apprentice Relationship Specialty Start Date End Date Unallocated, MD Leeanne Ball [place] [address] PCP - General 07/04/23 Reason for Visit [...] BE BASED ON THE PRIMARY CLINICAL RECORDS. [employer] [facility]. provides no warranty or guarantee of the accuracy or completeness of information in this document.
--- NOTE | 2024-09-23 07:28 | CA_ITS ---
Patient Name: KARLIE ANN MR#: [id number] : 1970 Exam Date: 09/23/2024 Ordering Doctor: DR. Sue Lyman M.D. ECHOCARDIOGRAM REPORT PROCEDURE: CA ECHO DOPPLER COMPLETE INDICATIONS: CAD, Nonischemic cardiomyopathy COMPARISON: None. DESCRIPTION: COMPLETE ECHOCARDIOGRAM Real-time transthoracic echocardiography with 2D, M-mode, spectral and color flow Doppler performed. QUALITY: Technical quality was good. LEFT VENTRICLE: Normal chamber size. Mild concentric left ventricular hypertrophy. Global left ventricular systolic function is mildly decreased. LV EF: Visual estimation of left ventricular ejection fraction is 45-50%. DIASTOLIC: ATRIAL SEPTUM: LEFT ATRIUM: Mild dilatation. RIGHT ATRIUM: Normal chamber size. RIGHT VENTRICLE: Normal chamber size. Normal right ventricular systolic function. TRICUSPID VALVE: Normal mobility and thickness. No stenosis with trivial regurgitation. No evidence of pulmonary hypertension. RVSP 31 mmHg. MITRAL VALVE: Normal mobility and thickness. No evidence of mitral valve stenosis. There is no mitral annular calcification. Trivial mitral regurgitation. AORTIC VALVE: Bicuspid appearance with a calcified raphae [Alysha type I] with fusion of the right and left cusps. No evidence of aortic valve stenosis. Mild aortic regurgitation. AORTIC ROOT: Mildly dilated. Measuring 3.8 cm. The ascending aorta is normal in size measuring 3.3 cm. The aortic arch measures 2.8 cm. PULMONIC VALVE: Normal thickness and mobility. No stenosis. Trivial regurgitation. PERICARDIUM: No evidence of pericardial effusion. IVC: Collapses with inspirations. Normal size. PLEURA: CONCLUSION: 1. The left ventricle is normal in size and exhibits mild concentric hypertrophy with mildly reduced systolic function. There is global hypokinesis. LVEF is estimated at 45 to 50%. 2. Normal right ventricular size and systolic function. 3. Bicuspid aortic valve, Alysha type I with no stenosis and mild regurgitation. 4. Mildly dilated aortic root with normal size ascending aorta. 5. Normal right-sided pressures. Adult Echocardiography Procedure Report Left Ventricle LVEDD (3.7 - 5.6 cm): 5.23 cm LVESD (2.2 - 4.0 cm): 4.19 cm LVIVS thickness (0.6 - 1.2 cm): 1.21 cm LVPW thickness (0.5 - 1.0 cm): 1.29 cm e': 0.07 m/s E - e': 10.41 LVOT Max Gradient: 2.42 mm[Hg] LVOT Area (cm2): 0.78 m/s Peak Velocity (LVOT): 0.78 m/s Mean Velocity (LVOT): 0.54 m/s LVOT Diameter 2.56 cm Left Ventricular Ejection Fraction: 45-50 % Left Atrium LA Volume Index (2D A2C): 43.34 ml/m2 Left Atrium Systolic Dimension: 3.73 cm Mitral Valve MV E to A Ratio: 0.86 Mitral Valve A-Wave Peak Velocity: 0.84 m/s Mitral Valve E-Wave Peak Velocity: 0.72 m/s Right Ventricle RV Internal Diastolic Dimension: 3.32 cm Aorta AO Root Diam: 3.76 cm Ascending Ao Diam: 3.31 cm Aortic Valve AoV Area (Peak Geovany): 2.20 cm2, 2.23 cm2 AoV Area (VTI): 1.99 cm2, 2.05 cm2 Deceleration Solano: 1.24 m/s2 Pressure Half-Time: 429.46 ms Peak Velocity(Antegrade Flow): 1.79 m/s, 1.83 m/s Peak Gradient(Antegrade Flow): 12.81 mm[Hg], 13.46 mm[Hg] Mean Velocity(Antegrade Flow): 1.14 m/s, 1.19 m/s Mean Gradient(Antegrade Flow): 6.31 mm[Hg], 6.66 mm[Hg] Velocity Time Integral: 39.34 cm, 41.44 cm Tricuspid Valve Peak Velocity (Regurgitant Flow): 2.64 m/s Pulmonic Valve Mean Gradient: 2.01 mm[Hg], 1.84 mm[Hg], 1.61 mm[Hg] Mean Velocity: 0.66 m/s, 0.63 m/s, 0.59 m/s Peak Velocity: 0.89 m/s Peak Gradient: 3.32 mm[Hg], 3.32 mm[Hg], 2.81 mm[Hg] Right Atrium Right Atrium Systolic Pressure: 54.02 ml, 54.02 ml Dictated by: Jj March M.D. on 09/23/2024 at 10:30 Approved by: Jj March M.D. on 09/23/2024 at 10:36
== END 2024-09-23 07:23 | disposition home or self-care (01) ==
LOC: CARD 07:23
PROVIDERS: Visit Provider Internal Medicine Cardiovascular Disease
DX: I25.10 Atherosclerotic heart disease of native coronary artery without angina pectoris (principal); I42.8 Other cardiomyopathies
CPT/HCPCS: 93306; 93356

== ENCOUNTER 2025-08-08 17:24 | Emergency (ER) | payer MEDICAID, SELFPAY ==
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
[2025-08-08 17:51] VITALS: BP 162/101; PULSE 69; TEMP 37.2; O2SAT 99; BMI 28.8
--- OUTSIDE RECORDS SUMMARY | 2025-08-08 19:43 | XMS_ITS | CCD ---
Author Organization [facility] Care Team Providers Care Reinforced Steel Placing Supervisor Name Role Phone TRISTA, DR MIRANDA Primary Care Unavailable MIS, DR MIRANDA Attending Unavailable WEST, DR KARLIE Osorio Consulting Unavailable TRISTA, DR MIRANDA Admitting Unavailable TRISTA, DR MIRANDA Consulting Unavailable Lauren Hernández Primary Care Physician Unavailab LAUREN Velez Primary Care Physician Unallocated MD, Noms Provider Primary Care Provi arsenio DEREK CORONEL Attending Unavailable DEREK CORONEL Attending Unavailable BENITO LYMAN Admitting Unavailable BENITO LYMAN Attending Unavailable BENITO LYMAN Attending Unavailable BENITO LYMAN Attending Unavailable BENITO LYMAN Referring Unavailable Allergies Allergy ClassificationReported Allergen(s)Allergy TypeDate of OnsetReaction(s) Facility (3 sources)Tape 1Drug allergyEruption of skin (disorder)[facility] Digestive HealthComment on above:paper tape Medications Current Medications MedicationDrug Class(es)DatesSig (Normalized)Sig (Original)carvedilol 6.25 mg oral tablet (2 sources)alpha-Adrenergic Rosalio, beta-Adrenergic BlockerStart: 05-13-2024 End: 42-51-7931spjz 1 tablet by mouth in the morningcarvedilol (Coreg) 6.25 MG tablet Take 6.25 mg by mouth in the morning and 6.25 mg in the evening. Take with meals. 05/13/2024 05/13/2025 Activedapagliflozin 10 mg oral tablet (2 sources)Sodium-Glucose Cotransporter 2 InhibitorStart: 06-25-2024 End: 32-70-9588yyzxmsxrbfxzg (Farxiga) 10 MG Take 10 mg by mouth 06/25/2024 06/20/2025 ActivehydroCHLOROthiazide 12.5 mg / losartan potassium 50 mg oral tablet (2 sources)Thiazide Diuretic, Angiotensin 2 Receptor Blockertake 1 tablet by mouth in the morninglosartan-hydroCHLOROthiazide (Hyzaar) 50-12.5 MG tablet Take 1 tablet by mouth in the morning. ActiveIbuprofen (3 sources)Nonsteroidal Anti-inflammatory DrugStart: 69-49-0232xcnqatvlo Oral, q8hr, PRN as needed for pain, Refills(s) 0 Start Date: 04/12/22 Status: Ordered Completed/Discontinued Medications MedicationDrug Class(es)DatesSig (Normalized)Sig (Original)polyethylene glycol 3350 891237 mg / potassium chloride 1480 mg / sodium bicarbonate 5720 mg / sodiu m chloride 27224 mg powder for oral solution (3 sources)Osmotic LaxativeStart: 31-74-8105IoNSTPIP Knutson oral powder for reconstitution See Instructions, 1 EA, Refill(s) 0, Prior to colonoscopy., [employer] #72, 177.8, cm, 04/12/22 15:06:00 EDT, Height/Length Dosing, 88.3, kg, 04/12/22 15:06:00 EDT, Weight Dosing Start Date: 04/12/22 Status: Ordered Problems Active Problems Problem ClassificationProblemDateDocumented DateEpisodic/ChronicCoronary atherosclerosis and other heart disease (2 sources)Atherosclerotic heart disease of [place] coronary artery without angina pectoris; Translations: [Atherosclerotic heart disease of [place] coronary artery without angina pectoris]Onset: 13-98-6243JrhrpkxPmjwqybfwzvx with complications and secondary hypertension (2 sources)Hypertensive heart disease with heart failure; Translations: [Hypertensive heart disease with heartfailure]Onset: 81-86-9435KnazvmsXpkyl nervous system disorders (1 source)Other chronic pain; Translations: [OTHER CHRONIC PAIN]Onset: 36-90-0601JdcrznxGxgyw non-traumatic joint disorders (4 sources)Pain in right knee; Translations: [PAIN IN RIGHT KNEE]Onset: 10-10-3564AzymvsuxJfggc non-traumatic joint disorders (1 source)Pain in left knee; Translations: [PAIN IN LEFT KNEE]Onset: 03-11-2022 EpisodicPeri-; endo-; and myocarditis; cardiomyopathy (except that caused by tuberculosis or sexually transmitted disease) (2 sources)Other cardiomyopathies; Translations: [Other cardiomyopathies]Onset: 20-67-7459SgedfdiMaloqtgyyslt (3 sources)Patient encounter ayzotk81-23-6808 Past or Other Problems Problem ClassificationProblemDateDocumented DateEpisodic/ChronicDiabetes mellitus without complication (2 sources)Hyperglycemia, unspecified; Translations: [Hyperglycemia, unspecified]Onset: 13-49-9882PvvzrikyPgrbp screening for suspected conditions (not mental disorders or infectious disease) (2 sources)Abnormal findings on diagnostic imaging of heart and coronary circulation; Translations: [Abnormal findings on diagnostic imaging of heart and coronary circulation]Onset: 98-73-9437Hexvqjqo Results Test NameValueInterpretationReference CjfcsEebbrbyb29gt 38-59-694997BUC left for patient to reschedule n/s appointment with Dr. Lyman from 04/25/2025. Patient need BMPNormalUniFulton County Health Center36on 43-75-616184ZVC 03/13/2025 for patient to call and reschedule appointment from no show in November 2024NormalUniversMcKitrick HospitalOffice Visiton 10-01-2024 Follow-up [id number] Karlie Ann 1970 M Date Provider Department Center 10/01/2024 24379-QHPCDJBENITO RODRIGUEZ Family History Problem Relation Age of Onset Other Mother No Known Problems Father Family Status - Relation Status Age at Mother Father Level of Service:05103 MT OFFICE/OUTPATIENT ESTABLISHED MOD MDM 30 MIN Reason for Visit and Comments: Cardiomyopathy [104] - Had echo last week. Said his BP at time of echo was 174/104. Valve Disorder [3372] Coronary Artery Disease [187] - Denies chest pain and SOB. Hypertension [612112] - Lab work has not been drawn yet. Orders provided for him again today. Said he forgets to take 2nd dose of carvedilol sometimes. Fatigue [46] Dizziness [340582] - Gets dizzy at times and sees spots.NormalUnGreen Cross HospitalOffice Visiton 46-88-4050Pcfswf-up [id number] Karlie Ann 1970 M Date Provider Department Center 06/17/2024 97887-RYTDJDBENITO LYMAN [facility] Family History Problem Relation Age of Onset Other Mother No Known Problems Father Family Status - Relation Status Age at Mother Father Level of Service:50717 MT OFFICE/OUTPATIENT ESTABLISHED MOD [facility] 30 MIN Reason for Visit and Comments: Post-Cath [731] - Had his hernia surgery and is feeling ok. Still a little sore s/p cath. Hypertension [113285] - He's been out of losartan-hydrochlorothiazide for a few days, as the pharmacy was out of stock. Leg Swelling [059896] - Has noticed some the past few days. Swelling in his hands also. Denies chest pain and SOB.NormalAshtabula County Medical Center 26-16-1672YDXR Attestation signed by Benito Lyman MD at [...] Coronary angiography (Left) - PC APPROVED Location: [facility] TAILOR HELPER 2 [facility] / [facility] (Cath) Providers: Benito Lyman MD Clinical information reviewed: Allergies Meds Physical Exam Airway Mallampati: II TM distance: >3 FB Neck ROM: full Cardiovascular Rhythm: regular Rate: normal (-) murmur, peripheral edema Dental Pulmonary Breath sounds clear to auscultation Abdominal - normal exam Anesthesia Plan ASA 2 other (Conscious sedation. ) Additional Equipment RequestsNormalUniversity of Formerly [facility] Community Hospitalon 84-30-5604RSMikchqt Of Present Illness Karlie Ann is a [...] with evening meal. 180 tablet 3 05/23/2024 losartan-hydroCHLOROthiazide (Hyzaar) 50-12.5 mg tablet Take 1 tablet [...] titration on outpatient basis. Ingrid Wallis MD Shrink Pit Operator - PGY6 [facility] [place] CampusalUniFulton County Health CenterNURSNOTEon 36-25-9049ZLTRWFESYH educated pt on d/c instructions. RN provided pt with arm sling and educated pt on importance of not using arm for 24 hours for radial sites and limited physical activity for femoral sites. RN encouraged pt to voice any questions or concerns. Pt verbalizes no questions or concerns at this time. Pt was wheeled off of unit with all of belongings.[facility]36on 41-70-022644I spoke with Dr. Lyman regarding patient's echo from 05/08/2024. EF is reduced. She ordered seamus cath and carvedilol 6.25mg bid. I spoke with patient and made him aware. Annette call surgeon's office and made them aware patient would not be cleared for hernia surgery tomorrow. Patient agreed to heart cath. Orders entered.[facility]36You ordered echo on this patient for pre-op. He had it last week and the result is scanned into media planner. Can you please review and let me know once you've cleared him? Thanks.[facility] HospitalOrders Onlyon 97-14-4494Trggmc [id number] Karlie Ann 1970 M Date Provider Department Center [facility]/13/20[facility] Family History Problem Relation Age of Onset Other Mother No Known Problems Father Family Status - Relation Status Age at Mother FatherNormalUniFulton County Health CenterECG 12-LEADon 94-54[place]6633[place] [address] Electrocardiograph Report Signed Patient: KARLIE ANN MR#: [id number] : 1970 Acct:[id number] Age/Sex: 53 / M ADM Date: 02/12/24 Loc: [facility] Attending Dr: Derek Coronel D.O. Ordering Physician: Derek Coronel D.O. Date of Service: 02/12/24 Procedure(s): ECG 12 lead Accession Number(s): [id number] cc: [facility] Test Date: 2024-02-12 Pat Name: KARLIE ANN Department: Room: - Gender: Male Planning Rn: : 1970 Requested By: Order Number: [id number] Juan MD: BENSON RODRIGUEZ Measurements Intervals [place] Rate: 57 P: 43 MT: 153 QRS: -10 QRSD: 97 T: -23 QT: 527 QTc: 516 Interpretive Statements SINUS BRADYCARDIA POSSIBLE LEFT VENTRICULAR HYPERTROPHY [VOLTAGE CRITERIA PLUS LAE OR QRS WIDENING] MINIMAL ST DEPRESSION [0.025+ mV ST DEPRESSION] PROLONGED QT INTERVAL No previous ECG available for comparison Electronically Signed On 02-12-2024 22:49:06 EDT by BENSON RODRIGUEZ Dictated By: Benson Rodriguez D.O. Signed By: 02/12/242248 DD/ 1 TD/TT: Secondary Spanish Teacher:CHARLENEHRadiology, MD Patricia - 02/13/2024 [place] [address] Electrocardiograph Report Signed Patient: KARLIE ANN MR#: [id number] : 1970 Acct:[id number] Age/Sex: 53 / M ADM Date: 02/12/24 Loc: [facility] Attending Dr: Derek Coronel D.O. Ordering Physician: Derek Coronel D.O. Date of Service: 02/12/24 Procedure(s): ECG 12 lead Accession Number(s): [id number] cc: [facility] Test Date: 2024-02-12 Pat Name: KARLIE ANN Department: Room: - Gender: Male Planning Rn: : 1970 Requested By: Order Number: [id number] Reading MD: BENSON RODRIGUEZ Measurements Intervals [place] Rate: 57 P: 43 MT: 153 QRS: -10 QRSD: 97 T: -23 QT: 527 QTc: 516 Interpretive Statements SINUS BRADYCARDIA POSSIBLE LEFT VENTRICULAR HYPERTROPHY [VOLTAGE CRITERIA PLUS LAE OR QRS WIDENING] MINIMAL ST DEPRESSION [0.025+ mV ST DEPRESSION] PROLONGED QT INTERVAL No previous ECG available for comparison Electronically Signed On 02-12-2024 22:49:06 EDT by BENSON RODRIGUEZ Dictated By: Benson Rodriguez D.O. Signed By: 02/12/242248 DD/ 1 TD/TT: Secondary Spanish Teacher: JOSE F HealthcareRadiology Study observation (narrative)JOSE F HealthcareECG 12-LEAD Ordered By: Radiologist Radiology on 61-24-8651[facility] Work Phone: Referrals Officeon 23-79-6259Ewcqbjdts Office [id number]#1.00TIFKnox Community HospitalReferrals [id number]#1.00TIFFNormal Robin [facility] CenterXR KNEE LESLY 3 Von 59-02-7797TJ KNEE LESLY 3 V EXAMINATION: XR KNEE [...] Electronically authenticated by: KARLIE PEREIRA Date: 2022-03-10 18:21[facility] Vital Signs Date TimeVital SignValuePerforming NerttporjWjszvnux12-07-7060 13:52-0400Body maljzd728.3 cmDerek Trovali Work Phone: 1([phone])[facility] KirkwoodWdssljaiqq34-25-0216 13:52-0400Body mass index (BMI) [Ratio]28.35 kg/m2Derek Trovali Work Phone: [phone] Francis Hospital & Health ServicesCmylnmlojg13-17-5575 13:52-0400Body xwbrou52.09 kgDerek Trovali Work Phone: [phone])[facility] KirkwoodQvqulwngil17-12-9481 13:52-0400Heart rate78 /min Derek Trovali Work Phone: [phone])[facility] KirkwoodQxwzkiqxdt26-61-8115 13:52-0400Respiratory rate14 /minDerek Trovali Work Phone: [phone] Francis Hospital & Health ServicesVzbxvdctln80-47-0649 13:52-3913OeT9% (BldA) [Mass fraction]96 %Derek Trovali Work Phone: noCO Healthcare Encounters Encounter DateEncounter TypeCare ProviderFacilityStart: 10-01-2024 End: 82-39-4790brrflmrknaARPZKSamaritan Hospitaltart: 06-26-2024 End: 21-89-2654Lgvend flowsAndrzej Coronel DO Work Phone: noms BWJosef GENSStart: 06-26-2024 End: 61-54-6966Xegnhk flowsAndrzej Coronel DO Work Phone: NOCC BWJosef GENSStart: 06-26-2024 End: 08-98-2608omouljjoybXYYS JULIAETTNot AvailableStart: 06-26-2024 End: 23-99-8825Mxyjev follow up visit related to original Nurys Coronel DO Work Phone: noms BWM GENSComment on above:S/P left inguinal hernia repair (Primary Dx)Start: 06-17-2024 End: 74-06-3114bvsagojtkhGFSPESamaritan Hospitaltart: 05-23-2024 End: 32-69-6172rehplvpyncOZOZNSamaritan Hospitaltart: 02-12-2024 End: 73-20-7356Prmkwtqla Result EncounterKykaren Coronel DO Other Phone: noms External Department UnsolicitedStart: 02-12-2024 End: 53-19-4168Aovwkrpal Result EncounterNikle Homer DO Other Phone: noms External Department UnsolicitedStart: 02-12-2024 End: 72-03-0678Wwj-admission [place] [facility] Start: 01-31-2024 End: 51-46-3911bxhxyfpwdhSPDX DUCKETTNot AvailableStart: 04-12-2022 End: 91-89-7506NecnbirghZmqvg SALAM [facility] Start: 04-12-2022 End: 15-74-6472Lqo-admission assessmentMaher SALAM [facility] Start: 03-10-2022 End: 34-57-2358xpwlracaflFT DOCTOR MISCFacility:H1 Procedures DateProcedureProcedure DetailPerforming ClinicianStart: 32-33-1047VXH 12-LEAD Derek Coronel DO Other Phone: History of repair of inguinal herniaS/P left inguinal hernia repairDerek Coronel DO Work Phone: structure of left foot (body structure)[facility] W[employer]AM Comment on above:Surgery Plan of Treatment DateCare ActivityDetailAuthorStart: 34-65-2742Vyqsoaesv vaccinationInfluenza Vaccine (#1)[facility] HealthcareStart: 84-40-5507Ghfnnpdhs vaccinationInfluenza Vaccine (#1)[facility] HealthcareStart: 50-36-5509Yjssarink for malignant neoplasm of colonNOMS Healthcare Immunizations Immunization DateImmunizationNotesCare KbydutfrQaoaxeql96-74-1605zmpolfpqf virus vaccine, unspecified formulationDerek Coronel ReviverMx Work Phone: [facility] Payers DatePayer CategoryPayerPolicy ID2023MedicaidHUMANA HEALTHY [employer] MEDICAID [place] [id number] [id number] Social History DateTypeDetailFacilityStart: 19-52-1963Ihdafad smoking statusHeavy tobacco smoker (finding)[facility] Digestive HealthStart: 11-09-[address] Tobacco smoking [address] [facility] Digestive HealthStart: 01-31-2024 End: 41-50-2414Cft Assigned At BirthMalProMedica Flower Hospitaltart: 01-31-2024 End: 98-98-8092Wzntbpl smoking status NHISSmokes tobacco dailyNOCO Healthcare History of tobacco useCigarette SmokerNOMS HealthcareStart: 01-31-2024 End: 24-70-1015Vwkuoon use and exposureSmokeless tobacco non-userNOMS Healthcare Start: 01-31-2024 End: 66-05-4111Zyqsinx of Social functionNOCO HealthcareStart: 92-08-7007Bnk assigned at birthNot on [facility] Progress note 10-01-2024 Note Date & ZhjpHjuxWlchmqjd23-29-5755 [facility] Reason for cardiology visit: Follow-up HPI: 10/01/2024. Patient is here today for follow-up visit. He states that he has been doing well. Denies any chest pain or shortness of breath at rest or with exertion. He denies orthopnea or paroxysmal nocturnal dyspnea or dizziness or palpitations or legs edema. He states that he checks his blood pressure at home and it has been in the 150s to 160s. He states that he forgets the evening dose of Coreg frequently because he falls asleep. He stopped drinking alcohol he might drink 2 beers or so in a month. He continues to smoke 1 pack/day which is down from what he used to be. He is trying to cut down gradually. In addition he drinks a lot of coffee and pop. 06/17/2024 Patient is here today for follow-up [...] change. 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 male without prior cardiac history. He [...] has been smoking cigarettes. He has a 78 pack-year smoking history. He has never used [...] Take 1 tablet (10 mg) by mouth once daily as directed., Disp: 30 tablet, Rfl: 11 losartan-hydroCHLOROthiazide (Hyzaar) 50-12.5 mg tablet, Take 1 tablet by mouth in the morning., Disp: , Rfl: Last Recorded Vitals Visit Vitals BP 154/82 (BP Location: Right arm, Patient Position: Sitting) Pulse 69 Ht 1.753 m (5' 9 ) Wt 88.9 kg (196 lb) SpO2 95% BMI 28.94 kg/m??? Smoking Status Every Day BSA 2.08 m??? Physical Examination: GENERAL: alert and oriented [...] soft, nontender, nondistended. EXTREMITIES: no lower extremity edema. No rash/skin discoloration present. NEURO: strength/sensation equal [...] total bilirubin 0.4, alk phos 122, total prote (more content not included)...[facility] History of Present illness Narrative 06-26-2024 Note Date & VstfZhjxDfoulwcw68-44-6527 History of Present illness Narrative* Derek Coronel DO - 06/26/2024 1:45 PM EDT General Surgery H&P Karlie Ann 1970 Karlie Ann is a 53 y.o. male presents with [...] or vomiting. Tolerating diet and having regular bowelfunction. No pain currently. No complaints at this [...] Use: High Risk (06/17/2024) Received from [facility] Patient History Smoking Tobacco Use: Every Day [...] to work with lifting restrictions mentioned above. Foll ow up as needed. Thank you, Ileana Coronel DO documented in this encounterSaint [facility] Progress note 06-17-2024 Note Date & AmqdNrrjIxgyrqcb73-83-0517 NoteBellevue [facility] Note Reason for cardiology [...] change. 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 male [...] its mid portion. L (more content not included)...[facility] Progress note 05-23-2024 Note Date & LsqtPfgcWgvjhnsw42-62-8703 NoteCardiac cath showed minor CAD So he has [...] fraction 35 to 40% Benito Lyman MD, FACCUniversity of El Campo Memorial Hospital Evaluation + Plan note Note Date & TypeNoteFacilityEvaluation + Plan note No data available for this section [facility] Evaluation note Note Date & TypeNoteFacilityEvaluation note* Diagnosis S/P left inguinal hernia repair- Primary Other postprocedural status documented in this encounter [facility] Discharge instructions Note Date & TypeNoteFacilityHospital Discharge instructions No data available for this section [facility] Progress note Note Date & TypeNoteFacilityProgress note No data available for this section [facility] Summary Purpose Family History No Family History [...] section and content) DATE CREATED AUTHOR 04/20/2022 [facility] DATE CREATED AUTHOR AUTHOR'S ORGANIZ ATION 02/13/2024 [facility] DATE CREATED AUTHOR AUTHOR'S ORGANIZ ATION 06/28/2024 [facility] DATE CREATED AUTHOR AUTHOR'S ORGANIZ ATION 05/02/2025 [facility] Care Team (unrecognized sect ion and content) Team MemberRelationshipSpecialtyStart DateEnd Date Unallocated, Jose F Duvall MD [address] [place] [address] PCP - Ncgjeuo73/7/23Team MemberRelationshipSpecialtyStart DateEnd Date Unallocated, Jose F Duvall MD [address] [place] [address] PCP - Nluegno02/7/23 Reason for Visit (unrecogniz ed section and content) ReasonCommentsPost-opPt presents today post op left inguinal hernia repair on 06/11. He states that he is not having anypain. Incisions are healing well. Pt is back [...] BE BASED ON THE PRIMARY CLINICAL RECORDS. [facility] [employer] [facility]. provides no warranty or guarantee of the accuracy or completeness of information in this document.
--- OUTSIDE RECORDS SUMMARY | 2025-08-08 19:44 | XMS_ITS | Clinical Summary ---
Author Organization [facility] Address [address] [facility] [place] [address] Care Team Providers Care Cap Sewer Name Role Phone Unavailable Primary Care Provider Unavailabl e Source Comments The following information is NOT included in Care Everywhere downloads:Psychiatric notes, ECG results, Cardiac Rehab notes, Pulmonary Function notes, data from [employer] (includes but not limited toPregnancy data,audiograms, eye exams, pre-surgical evaluation notes, well-child exam data).[facility] Allergies No known active allergies Immunizations ImmunizationAdministration DatesNext DueHepatitis A, Adult (CVX=52)09/24/2019 TST-PPD, intradermal (PPD) (CVX=96)06/22/2018 Social History Tobacco UseTypesPacks/DayYears UsedDateSmoking Tobacco: Every DayCigarettes Smokeless Tobacco: NeverAlcohol UseStandard Drinks/WeekCommentsYes0 (1 standard drink = 0.6 oz pure alcohol)Substance UseTypesUse/WeekCommentsNoSex and Gender InformationValueDate RecordedSex Assigned at BirthNot on fileLegal SexMale 07/01/2012 10:02 AM ESTGender IdentityNot on fileSexual OrientationNot on file Last Filed Vital Signs Vital SignReadingTime TakenCommentsBlood Apwcrevi417/8910 4:49 AM EDT Nhsjr938606/22/2018 4:49 AM EDTTemperature--Respiratory Bqfa2902 4:49 AM EDTOxygen Mrbfjkvhtr84%06/22/2018 4:49 AM EDTInhaled Oxygen Concentration-- Pclgux12.6 kg (160 lb)06/22/2018 4:49 AM QHGOoeijw659.8 cm (5' 10 )06/22/2018 4:49 AM EDTBody Mass Index22.9606/22/2018 4:49 AM EDT Plan of Treatment Health MaintenanceDue DateLast EbwsIbwkdcmzLgkojqoausa96/26/1971HIV Test 1985Hepatitis C Lhtrvxbq79/26/1989Tdap Ndumcpo7609/22/1988Hepatitis B (HBV) Vaccine (1 of 3 - 19+ 3-dose series)09/22/19894170Vljyaiyrbbu76/26/2006CRC Screening 2015Cologuard (Stool DNA)2015FIT2015Hepatitis A (HAV) Vaccine (2 of 2 - Risk 2-dose series)Pneumococcal Vaccine(s) (50+ yrs) (1 of 1 - PCV)1Shingles (RZV) Vaccine (1 of 2)1COVID-19 Vaccine (1 - season)2025Influenza Vaccine (#1)2025
--- OUTSIDE RECORDS SUMMARY | 2025-08-08 19:44 | XMS_ITS | Clinical Summary ---
Author Organization [facility] Address [address] [place] [address] Care Team Providers Care Circuit Design Engineer Name Role Phone Unavailable Primary Care Provider Unavailabl e Allergies No known active allergies Medications MedicationSigDispense QuantityRefillsLast FilledStart DateEnd DateStatus metoprolol succinate XL (Toprol-XL) 50 mg 24 hr tablet Indications:Benign hypertensive heart disease with heart failure (CMS/HCC)Take 1 tablet (50 mg) by mouth in the morning. Do not crush or chew. 30 tablet 11010/01/1629296Active losartan-hydrochlorothiazide (Hyzaar) 100-25 mg tablet Indications:Benign hypertensive heart disease with heart failure (CMS/HCC)Take 1 tablet by mouth in the morning. 30 tablet 11010/01/4683266Active dapagliflozin propanediol (Farxiga) 10 mg Indications:Decreased cardiac ejection fractionTake 1 tablet (10 mg) by mouth once daily as directed. 90 tablet 303//775854/6Active Active Problems ProblemNoted DateDiagnosed DateNonischemic itjwmzfmxzpkeq82/21/2024oronary artery disease involving stillaguamish coronary artery of stillaguamish heart without angina kjuqjpwo87/21/2024icuspid aortic valve06/17/2024Mitral valve insufficiency and aortic valve dkuqnbkytuhum68/21/2024orderline ejtoxpjstqdck51/21/2024ecreased cardiac ejection bxmmrinz99/16/2024bnormal eraszaamyjskpu49/16/2024re-op mzwdhfgiak08/20/2024bnormal EKG004/16/2024Murmur, heart04/16/2024enign hypertensive heart disease with heart ppjtghb8704/16/2024Overweight (BMI 25.0-29.9)04/16/2024Tobacco abuse04/16/2024lcohol use04/16/2024 Family History Medical HistoryRelationNameCommentsNo Known ProblemsFatherheart issuesMother RelationNameStatusCommentsFatherMother Social History Tobacco UseTypesPacks/DayYears UsedDateSmoking Tobacco: Every JqiZlzwxflvmt063 Smokeless Tobacco: NeverAlcohol UseStandard Drinks/QiwwBhzagnjwKej47 (1 standard drink = 0.6 oz pure alcohol)moderateUT Safety & EnvironmentAnswerDate Recorded Fear of Current or Ex-PartnerNot on file02/12/2024Emotionally AbusedNot on file 02/12/2024hysically AbusedNot on file02/12/2024Sexually AbusedNot on file 02/12/2024hysically or Sexually AbusedNot on file02/12/2024Sex and Gender InformationValueDate RecordedSex Assigned at KdwddPcak94/26/2025 2:26 PM EDT Legal OzqIvrg7902/12/2024 3:12 PM EDTGender PovzlmntAlhs25/26/2025 2:26 PM EDT Sexual OrientationHeterosexual or Ylbsurqo22/26/2025 2:26 PM EDT Last Filed Vital Signs Vital SignReadingTime TakenCommentsBlood Aidqkluf894/8210/01/2024 2:46 PM EST Zjbmq369910/01/2024 2:46 PM ESTTemperature--Respiratory Wvxd830905/23/2024 12:00 PM EDTOxygen Eusdtbtjtm87%10/01/2024 2:46 PM ESTInhaled Oxygen Concentration-- Oqclqm33.9 kg (196 lb)10/01/2024 2:46 PM DRDPzjlkg903.3 cm (5' 9 )10/01/2024 2:46 PM ESTBody Mass Index28.9410/01/2024 2:46 PM EST Plan of Treatment Health MaintenanceDue DateLast DoneCommentsCT Kvsjcokqstuo66/26/1971Colonoscopy 1970Colorectal Cancer Sgguhywky40/26/1971FIT-DNA1970FIT1970 FOBT1970 3800Lookqsmohwctl69/26/1971Depression Umretwrqm26/26/1983Hepatitis B Vaccines (1 of 3 - 19+ 3-dose series)1989Pneumococcal Vaccine: Pediatrics (0 to 5 Years) and At-Risk Patients (6 to 64 Years) (1 of 2 - PCV)1989 Adult Hxexilo1809/22/1992Zoster Vaccines (1 of 2)1COVID-19 Vaccine (1 - season)2025Influenza Vaccine (#1)/03/2024HIB Vaccines Aged OutNo longer eligible based on patient's age to complete this topicHPV VaccinesAged OutNo longer eligible based on patient's age to complete this topic IPV VaccinesAged OutNo longer eligible based on patient's age to complete this topicMeningococcal B VaccineAged OutNo longer eligible based on patient's age to complete this topicMeningococcal VaccineAged OutNo longer eligible based on patient's age to complete this topicRotavirus VaccinesAged OutNo longer eligible based on patient's age to complete this topic Insurance
--- OUTSIDE RECORDS SUMMARY | 2025-08-08 19:44 | XMS_ITS | Patient Health Record ---
Author Organization [facility] Address [address] [place] [address] Care Team Providers Care I O Psychologist Name Role Phone Out of Town, Out of town Primary Care Provider U Demetria Walls Unavailable Allergies No Known Allergies Results Component Value Reference Range Notes Urinalysis (IH) Reviewed date:10/16/2024 01:58:20 PM Interpretation:Abnormal Performing Lab: Notes/Report: Abnormal Blood Non-Hemolyzed NEGATIVE negative - ca. 250 Er y/ml Bnmybkk27dsvynzcy - 500 mg/dLGlucoseNORMALnegative - > 1000 mg/dLSpec. Gr.1.015 1.000 - 1.030 Reason For Referral No Information Social History Tobacco Use: Social History Observation Description Date Details (start date - stop date) Current Smoker NA - NA Tobacco Control (Standard) Question Answer Notes Tobacco use: Current smoker How often do you smoke cigarettes?Every dayHow many cigarettes a day do you smoke?11-20Are you interested in quitting?Thinking about quitting Vital Signs Temperature 97.3 degrees Fahrenheit 10/16/2024 VISION: R: 20/25; L: 20/25; B: 20/20 NOT CORRECTED HEARING: PASS COLORS: PASS Respiratory Rate 16 /min 10/16/2024 VISION: R: 20/25; L: 20/25; B: 20/20 NOT CORRECTED HEARING: PASS COLORS: PASS Blood pressure diastolic 60 mm Hg 10/16/2024 VISION: R: 20/25; L: 20/25; B: 20/20 NOT CORRECTED HEARING: PASS COLORS: PASS Height 70 in 10/16/2024 VISION: R: 20/25; L: 20/25; B: 20/20 NOT CORRECTED HEARING: PASS COLORS: PASS Blood pressure systolic 102 mm Hg 10/16/2024 VISION: R: 20/25; L: 20/25; B: 20/20 NOT CORRECTED HEARING: PASS COLORS: PASS Weight 202 lbs 10/16/2024 VISION: R: 20/25; L: 20/25; B: 20/20 NOT CORRECTED HEARING: PASS COLORS: PASS BMI 28.98 kg/m2 10/16/2024 VISION: R: 20/25; L: 20/25; B: 20/20 NOT CORRECTED HEARING: PASS COLORS: PASS Encounters Encounter Location Date Provider Diagnosis [id number] [address] [place] [address] 10/16/2024 Demetria Carney Encounter for pre-employment health screening examination Z02.1 Assessments Encounter Date Diagnosis (ICD Code) Assessment Notes Treatment Notes Treatment Clinical Notes Section Notes 10/16/2024 Encounter for pre-em ployment health screening examination (ICD-10 - Z02.1) Patient certified for 2 year certificate. All forms given to patient. ELECTROLESS PLATER advised patient that [facility] does not forward medical certificate to [facility] and that patient will need to present certificate to [facility]. Patient agreeable and verbalized understanding. All questions answered. Patient reports that he is not taking any medications for management of BP and that with lifestyle modifications (dietary and working on quitting smoking) his BP seems to be under good control. Is management by PCP. Plan Of Treatment No Information Insurance Providers Payer Name Payer Address Payer Phone Subscriber Number Group Number Insured Name Patient Relationship to Insured Coverage Start Date Coverage End Date PROMPT PAY/Bill to Patient Killian Pratt - patient is the insured Medical (General) History Medical History History ICD Code No known health problems Z78.9 Surgical History Surgery Date(Month/Year) foot surgery 08/1995 fractured right leg age 13 inguinal hernia repair 08/2023 Hospitalization History Reason Date(Month/Year) surgeries
--- OUTSIDE RECORDS SUMMARY | 2025-08-08 19:44 | XMS_ITS | Clinical Summary ---
Author Organization [facility] Address [address] [place] [address] Care Team Providers Care Supervisor Pre Wave Name Role Phone Unallocated, Noms Provider Primary Care Provi arsenio Allergies No known active allergies Medications MedicationSigDispense QuantityRefillsLast FilledStart DateEnd DateStatus carvedilol (Coreg) 6.25 MG tablet Take 6.25 mg by mouth in the morning and 6.25 mg in the evening. Take with meals.05/13/2024ctive dapagliflozin (Farxiga) 10 MG Take 10 mg by mouth06/25/2024ctive losartan-hydroCHLOROthiazide (Hyzaar) 50-12.5 MG tablet Take 1 tablet by mouth in the morning.Active Social History Tobacco UseTypesPacks/DayYears UsedDateSmoking Tobacco: Every DayCigarettes Smokeless Tobacco: Never Tobacco Cessation:Ready to Q uit: Not Asked; Counseling Given: Not Answered Sex and Gender InformationValueDate RecordedSex Assigned at BirthNot on file Legal LndCkmo4011/09/2022 6:37 PM EDTGender IdentityNot on fileSexual Orientation Not on file Last Filed Vital Signs Vital SignReadingTime TakenCommentsBlood Hfwukjoa988/8006 8:36 AM EDT Gzdzl333806/26/2024 1:52 PM OLIOtzjqugfgwg12.7 ??C (98 ??F)01/31/2024 8:36 AM EDT Respiratory Xtuh9915 1:52 PM EDTOxygen Dyzitglxve70%06/26/2024 1:52 PM EDTInhaled Oxygen Concentration--Ksajkc48.1 kg (192 lb)06/26/2024 1:52 PM EDT Wlzass111.3 cm (5' 9 )06/26/2024 1:52 PM EDTBody Mass Index28.351 1:52 PM EDT Plan of Treatment Health MaintenanceDue DateLast DoneCommentsCT Witlggivxytu20/26/1971Colonoscopy 1970Colorectal Cancer Wzokyeifu53/26/1971FIT-DNA1970FIT1970 FOBT1970 2690Mnxwmtoorrdbk96/26/1971Pneumococcal Vaccine: Pediatrics (0 to 5 Years) and At-Risk Patients (6 to 64 Years) (1 of 2 - PCV)1989COVID-19 Vaccine (1 - 2024- season)2025Influenza Vaccine (#1) Insurance Care Teams Team MemberRelationshipSpecialtyStart DateEnd Date Unallocated, [place], [address] [place] [address] PCP - Yhkagtg36/7/23
--- OUTSIDE RECORDS SUMMARY | 2025-08-08 19:44 | XMS_ITS | Patient Health Record ---
Author Organization [facility] es Address [address] [place] [address] Care Team Providers Care Production Utility Worker Name Role Phone Terry Farrell Primary Care Provider Allergies Allergen (clinical drug ingredient) Drug/Non Drug Allergy documented on EMR Reaction Allergy Type Onset Date Status Paper Tape 1 d53bptiejeDcpd AllergyActive Reason For Referral No Information Medications Medication SIG (Take, Route, Frequency, Duration) Notes Start Date End Date Status Neurontin 300 MG Capsule 1 capsule Orall y Three times a day; Duration: 90 day(s) 10/21/2011ctiveAmitriptyline HCl 25 MG Tablet1 tablet at bedtime Orally Once a day; Duration: 30 day(s)10/21/2011ctive Social History Section Notes: Stop smoking 4 years ago Problems Problem Type SNOMED Code ICD Code Onset Dates Problem Status W/U Status Risk Notes Problem Chronic pain syndrome (164895698) Chronic pain syndrome (338.4) ActiveconfirmedProblemPrimary localized osteoarthrosis of multiple sites (19866404)Generalized osteoarthrosis, involving multiple sites (715.09)Active confirmed Plan Of Treatment No Information Insurance Providers Payer Name Payer Address Payer Phone Subscriber Number Group Number Insured Name Patient Relationship to Insured Coverage Start Date Coverage End Date Dental [employer] DQ [address] [address] [place], [place] [phone] [id number] SR, DAVIDSelf - patient is the [id number] 2023ental Wrap [facility] HumanaPO [address] [place] [phone] Zach ANN SR - patient is the [id number] 2023 Medical (General) History Surgical History Surgery Date(Month/Year) Right leg bone was taken out 1983,,86 Pins in the bottom of left foot (pins wh ere taken out 1995) 1995
[2025-08-08] MEDS: LIDOCAINE HCL 1% PF 50 MG/5 ML VIAL INJ (19:45)
--- NOTE | 2025-08-08 20:35 | ED.DENTAL1 ---
HPI - Dental/Oral General Chief complaint: Dental/Oral Stated complaint: Facial swellng, fevers Time Seen by Provider: 08/08/25 19:16 Source: patient Limitations: no limitations History of Present Illness HPI Narrative: 54-year-old male presents here chief complaint of dental abscess noted to the left upper gumline along dentition #13 and 14. Patient has multiple dental caries multiple missing teeth small abscess is appreciated. He states he woke up with swelling yesterday worsened today. He is a smoker. He has not taken any antibiotics or any other medication. He has not seen a dentist for several years. Patient is not currently febrile Teeth map:  1. dental abscess Related Data Home Medications ?Medication ?Instructions ?Recorded ?Confirmed dapagliflozin propanediol 10 mg 10 mg PO DAILY HTN 05/30/24 08/08/25 tablet (Farxiga) losartan 50 mg-hydrochlorothiazide 1 tab PO DAILY 05/30/24 08/08/25 12.5 mg tablet metoprolol succinate 50 mg 50 mg PO QDAY 08/08/25 08/08/25 tablet,extended release 24 hr Previous Rx's ?Medication ?Instructions ?Recorded clindamycin HCl 300 mg capsule 300 mg PO Q8H 10 days #30 caps 08/08/25 ibuprofen 800 mg tablet 800 mg PO Q8H PRN pain #30 tabs 08/08/25 Allergies Allergy/AdvReac Type Severity Reaction Status Date / Time No Known Drug Allergies Allergy Verified 08/08/25 17:48 Review of Systems ROS Status of ROS 10 or more systems reviewed and unremarkable except as noted in history and below [facility] Medical History (Updated 08/08/25 @ 20:27 by Ashley Cook) Nonischemic cardiomyopathy ?I42.8 - Other cardiomyopathies (ICD-10) Aortic stenosis ?I35.0 - Nonrheumatic aortic (valve) stenosis (ICD-10) H/O cardiac murmur ?Z86.79 - Personal history of other diseases of the circulatory system (ICD-10) Abnormal EKG (~01/2024) ?R94.31 - Abnormal electrocardiogram [ECG] [EKG] (ICD-10) Hypertension ?I10 - Essential (primary) hypertension (ICD-10) Osteomyelitis ?M86.9 - Osteomyelitis, unspecified (ICD-10) Foot fracture, left ?S92.902A - Unspecified fracture of left foot, initial encounter for closed fracture (ICD-10) Inguinal hernia ?K40.90 - Unilateral inguinal hernia, without obstruction or gangrene, not specified as recurrent (ICD-10) Surgical History (Updated 02/12/24 @ 09:36 by Yasmine Moe RN) History of surgery on lower extremity ?Z98.890 - Other specified postprocedural states (ICD-10) H/O foot surgery ?Z98.890 - Other specified postprocedural states (ICD-10) Family History (Updated 02/12/24 @ 08:55 by Yasmine Moe RN) Other Family history of COPD (chronic obstructive pulmonary disease) Family history of cancer Family history of diabetes mellitus Family history of stroke Heart disease Social History Within the past year, how often did you have a drink containing alcohol: 2-3 times a week Smoking status: Current every day smoker Nicotine containing products detail: pack per day Non-prescribed substance use: denies use Non-prescribed substance use details: used to use cannabis years agol 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 General: The patient is comfortable, alert and oriented x3, well appearing, non toxic in no apparent distress. Head: Atraumatic and normocephalic. Eyes: Normal conjunctiva, no exudates. ENT: The oropharynx is normal. No pharyngeal erythema, uvular edema, tonsillar exudates, asymmetry or trismus. Uvula is midline. Mouth is normal to inspection With the exception of a pain on percussion of the tooth #13 and evidence of dental caries. There is evidence of facial asymmetry or abscess formation. Floor of the mouth is soft. No tenderness in the submental or submandibular space. No tongue elevation or deviation. The patient has evidence of periapical abscess, gingivitis,no ANUG or other acute pathology. Airway is patent. Neck: The neck demonstrates normal range of motion. No meningeals signs are present. No stridor. No masses or lymphandenopathy noted. Respiratory: No acute distress, lungs are clear to auscultation, no wheezing, rhonchi, or rales noted. No stridor or retractions are noted. Cardiovascular: Regular rate and rhythm Skin: The skin exam shows no evidence of rashes Neuro: Alert and oriented x4, normal speech Lymphatic: No cervical lymphadenopathy Constitutional Vital Signs, click to edit/add: Last Vital Signs Temp 99 F 08/08/25 17:51 Pulse 78 08/08/25 20:48 Resp 16 08/08/25 20:48 BP 160/90 H 08/08/25 20:48 Pulse Ox 95 08/08/25 20:48 O2 Del Method Room Air 08/08/25 20:48 Course Vital Signs Vital signs: Vital Signs Temperature 99 F 08/08/25 17:51 Pulse Rate 69 08/08/25 17:51 Respiratory Rate 12 08/08/25 17:51 Blood Pressure 162/101 H 08/08/25 17:51 Pulse Oximetry 99 08/08/25 17:51 Oxygen Delivery Method Room Air 08/08/25 17:51 Temperature 99 F 08/08/25 17:51 Pulse Rate 78 08/08/25 20:48 Respiratory Rate 16 08/08/25 20:48 Blood Pressure 160/90 H 08/08/25 20:48 Pulse Oximetry 95 08/08/25 20:48 Oxygen Delivery Method Room Air 08/08/25 20:48 MDM - Dental/Oral MDM Narrative Medical decision making narrative: 54-year-old male presents here chief complaint of dental abscess noted to the left upper gumline along dentition #13 and 14. Patient has multiple dental caries multiple missing teeth small abscess is appreciated. He states he woke up with swelling yesterday worsened today. He is a smoker. He has not taken any antibiotics or any other medication. He has not seen a dentist for several years. Patient is not currently febrile Patient presented here with chief complaint of dental abscess facial swelling. 1% lidocaine solution time 2 cc was injected into the gums above the dentition #13 small incision made with 11 blade small mild blood was expressed no purulent drainage is noted. Patient was able to show some spit clear the secretions. Patient be discharged home with instructions for dental abscess follow-up with dentist medicated here with clindamycin and dental anesthesia. He will discharge home with dental anesthesia, Motrin and prescription for clindamycin. Medical Records Medical records narrative: 54-year-old male presents here chief complaint of dental abscess noted to the left upper gumline along dentition #13 and 14. Patient has multiple dental caries multiple missing teeth small abscess is appreciated. He states he woke up with swelling yesterday worsened today. He is a smoker. He has not taken any antibiotics or any other medication. He has not seen a dentist for several years. Patient is not currently febrile Patient presented here with chief complaint of dental abscess facial swelling. 1% lidocaine solution time 2 cc was injected into the gums above the dentition #13 small incision made with 11 blade small mild blood was expressed no purulent drainage is noted. Patient was able to show some spit clear the secretions. Patient be discharged home with instructions for dental abscess follow-up with dentist medicated here with clindamycin and dental anesthesia. He will discharge home with dental anesthesia, Motrin and prescription for clindamycin. Discharge Plan Discharge Chief Complaint: Dental/Oral Clinical Impression: Toothache, Dental caries, Dental abscess Patient Disposition: Home, Self-Care Time of Disposition Decision: 20:27 Condition: Good Prescriptions / Home Meds: New clindamycin HCl 300 mg capsule 300 mg PO Q8H 10 Days Qty: 30 0RF ibuprofen 800 mg tablet 800 mg PO Q8H PRN (Reason: pain) Qty: 30 0RF No Action metoprolol succinate 50 mg tablet extended release 24 hr 50 mg PO QDAY dapagliflozin propanediol [Farxiga] 10 mg tablet 10 mg PO DAILY losartan-hydrochlorothiazide 50-12.5 mg tablet 1 tab PO DAILY Print Language: Arabic Instructions: Dental Abscess (ED), Abscess Incision and Drainage (DC) Referrals: Lisa Mckinney NP [Primary Care Provider] - 1 week Discharge Date/Time: 08/08/25 20:50
[2025-08-08] MEDS: CLINDAMYCIN HCL 150 MG CAPSULE 300 MG PO (20:40)
[2025-08-08] MEDS: HYDROCODONE/ACET 5-325 MG TABLET 2 TAB PO (20:40)
[2025-08-08 20:48] VITALS: BP 160/90; PULSE 78; O2SAT 95
== END 2025-08-08 20:50 | disposition home or self-care (01) ==
PROVIDERS: Emergency Provider Student in an Organized Health Care Education/Training Program; PCP Nurse Practitioner Family
DX: K04.7 Periapical abscess without sinus (principal); K08.89 Other specified disorders of teeth and supporting structures; K02.9 Dental caries, unspecified; F17.200 Nicotine dependence, unspecified, uncomplicated
CPT/HCPCS: 41800; 99284